=== PATIENT | female | born 2000 | race Hispanic/Latino ===

== ENCOUNTER 2023-09-13 13:48 | Inpatient (IN) | payer SELFPAY ==
--- OUTSIDE RECORDS SUMMARY | 2023-09-13 13:53 | XMS REPORT | Continuity of Care Document ---
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 COMPARISON: None. FINDINGS: Vertebral body height and disc spaces are maintained. No fractures or facet dislocation seen. Prevertebral soft tissues are normal. Lung apices are clear. IMPRESSION: 1. No cervical fracture seen. DLP: 1145.97 mGy*cm CT radiation dose optimization is achieved by the use of a CT protocol in accordance with ACR practice guidelines and adherence to therapist asst's recommendations which include automated exposure control, adjustment of the mA and/or kV according to patient size and/or use of iterative reconstruction technique. Name: MARISSA ODELL [facility] Phys: Neville Monge DO [address] : 2000 Age: 19 Sex: [place] [address] Loc: N.ERNT 2 Exam Date: 07/01/2020 [facility]: ADM IN PH: FAX: PAGE 1 Signed Report (CONTINUED) Patient Name: MARISSA ODELL Unit No: [id number] EXAMS: CPT: [id number] CT HEAD/BRAIN W/O CONT 07771 (Continued) at 2206 Reported and signed by: Edna Ochoa MD CC: Doc No Technologist: ILENE Bautista CTDI: 44.79 DLP: 628.17 Trscr Dt/Tm: 07/01/2020 (2206) by:[email or web address] Orig Print D/T: S: 07/01/2020 (2209) BATCH NO: N/A Name: MARISSA ODELL [facility] Phys: PELLE - Peleg,Leeor B DO [address] [place] : 2000 Age: 19 Sex: [place] [address] Loc: N[facility] 2 Exam Date: 07/01/2020 Status: ADM IN PH: FAX: PAGE 2 Signed Report- CT MAXIFAC W/O [id number] 21:16:00Patient Name: MARISSA ODELL Unit No: [id number] EXAMS: CPT: [id number] CT MAXIFAC W/O CONTRAST [address]11 CT MAXILLOFACIAL WITHOUT CONTRAST: CLINICAL HISTORY: Trauma TECHNIQUE: Axial CT imaging of the facial bones was performed without IV contrast. Sagittal and coronal reformatted images are submitted. FINDINGS: There is a fracture of the upper right maxilla with approximately 3 mm displacement, which runs between tooth #8 and #9. The globes and orbital floors are intact. There is no retrobulbar hemorrhage. The paranasal sinuses are clear. Soft tissue structures appear normal. IMPRESSION: Mild displaced fracture of the upper right anterior maxilla between tooth #8 and #9. DLP: 347.96 mGy-cm CT dose o ptimization is achieved for this examination by the use of a CT protocol in accordance with ACR practice standards and adherence to therapist asst's recommendations with automated exposure control. at 2115 Reported and signed by: Jesús centeno MD CC: Grady Fuentes MD Technologist: ILENE Bautista CTDI: 18.95 DLP: 347.96 Trscr Dt/Tm: 07/01/2020 (2115) by:[email or web address] Orig Print D/T: S: 07/01/2020 (2118) BATCH NO: N/A Name: MARISSA ODELL [facility] Phys: Neville Monge DO [address] : 2000 Age: 19 Sex: F [place] [address] Loc: SARA Exam Date: 07/01/2020 Status: REG ER PH: FAX: PAGE 1 Signed ReportSURGICAL [id number] 15:09:00 RUN DATE: 10/21/19 [facility] - LAB PAGE 1 RUN TIME: 1510 Specimen Inquiry RUN USER: INTERFACE --- ---------PATIENT: MARISSA ODELL LOC: [id number] U #: [id number] AGE/SX: 18/F ROOM: N60 RE10/09/19REG DR: Grady Fuentes MD : [birth year] BED: 1 DIS: 10/20/19 STATUS: DIS IN TLOC: SPEC #: [id number] RECD: 10/14/19-1111 STATUS: TESSY REAshleigh #: [id number] LATHA: 10/13/19-[address]: Grady Fuentes MD ENTERED: 10/14/19-1205 SP TYPE: SURG OTHR DR: ORDERED: PATHGM4, PATHGM5, PATH SPEC, H E STAIN/2 TISSUES: A.PLACENTA THIRD TRIMESTER - Placenta B. LEIOMYOMA MYOMECTOMY - Uterine fibroid CLINICAL HISTORY Diagnosis/Clinical Data: 26.5 weeks, premature and prolonged rupture of membranes, history of genital herpes and bipolar disorder, 10 cm uterine fibroid, history of marijuana use in the first trimester Operative Procedure: C- section FINAL DIAGNOSIS Placenta, section (200 gm): Umbilical cord: Threevessels identified; cord length 18.5 cm. Membranes: Acute chorioamnionitis. Cotyledons: Pattern consistent with gestational age. Uterine myoma, myomectomy: Leiomyoma with extensive infarctive necrosis.Electronically signed by: Aristides Coppola MD 10/21/2019 GROSS DESCRIPTION A. Received fresh, labeled"placenta", is a 200 g, 14.0 x 10.0 x 2.0 cm, [place], ovoid placenta. The membranes are xiong-pink to xiong-brown, semi-translucent, and insert marginally. The umbilical cord is xiong-white, measures 18.5 cm in length and 1.2 cm in diameter, is normally coiled, contains three vessels and inserts eccentrically. The surface is blue-webb, with a normal vascular distribution pattern. The maternal surface is red-brown, with complete cotyledons. The parenchyma is red-brown, with no masses or lesions. Resource Agent sections are submitted in cassettes A1 - A4. B. Received fresh, labeled "uterine fibroid", a 350 g, 14.0 x 11.0 x 6.0 cm, xiong-brown, partially degenerative, subserosal nodule. The cut surfaces are xiong-white to xiong-brown, whorled, and partially necrotic. Resource Agent sections are submitted in cassettes B1 - B4. TR 10/17/2019 12:44 PM CONTINUED ON NEXT PAGE RUN DATE: 10/21/19 [facility] - LAB PAGE 2 RUN TIME: 1510 Specimen Inquiry RUN USER: INTERFACE SPEC #: [id number] PATIENT: MARISSA ODELL #[id number] (Continued) MICROSCOPIC DESCRIPTION Sections of the umbilical cord show three vessels identified that are free of inflammation. Sections of the membranes show amnion and chorion with patchy infiltration by neutrophils, consistent with acute chorioamnionitis. Sections of the cotyledons how a pattern consistent with gestational age with increased syncytial knots and scattered foci of fibrin deposition. The villi show appropriate vascularity and no evidence of infarction or villitis is identified. No distinct evidence of malignancy is identified. Sections of the uterine myoma show portions of smooth muscle tissue with extensive hyalinizing necrosis, the latter consisting of sh adows of tapered, spindled cells without obvious nuclear enlargement. More viable areas of smooth muscle show spindled cells without prominent atypia nor prominent mitotic activity (up to 1 mitosis per10 high-power salazar), consistent with fragments of a leiomyoma with infarctive necrosis. No distinct evidence of malignancy is appreciated in this material. Signed SIGNATURE ON FILE Aristides Coppola MD 10/21/19 1509 END OF REPORT VANCOMYCIN [id number] 11:31:00 Test Item Value Reference Range Interpretation Comments VANCOMYCIN TROUGH 5.7 ug/ml 10.0-20.0 L Please ref er to (test code = VANCT) Medicati on Administration Record (MAR) forlast d ose date and time. [id number] 11:15:00 Test Item Value Reference Range Interpretation Comments CREATININE (test code = CREAT) 0.50 mg/dL 0.44-1.03 N [id number] 09:09:00 Test Item Value Reference Range Interpretation Comments GLUBED (test code = GLUBED) 85 MG/DL 70-105 N CBC W/AUTO [id number] 07:07:00 Test Item Value Reference Range Interpretation Comments WHITE BLOOD CELL (test 11.4 x10 3/uL 3.2-11.5 N code = WBC) CORRECTED WBC (test 11.4 x10 3/uL 3.2-11.5 N ------- code = CWBC) --- --| ~~ Correcte d WBC Result ~~ | | WBC has been corrected due t o NRBC | --- --- --- RED BLOOD CELL (test 2.61 x10(6)/m 3.70-5.10 L code = RBC) HEMOGLOBIN (test code 7.5 g/dL 12.0-15.0 L = HGB) HEMATOCRIT (test code 24.1 % 35.7-44.8 L = HCT) MEAN CELL VOLUME (test 92 fL 80-100 N code = MCV) MEAN CELL HGB (test 28.7 pg 26.2-33.8 N code = MCH) MEAN CELL HGB 31.1 g/dL 30.0-34.0 N CONCENTRATION (test code = MCHC) RED CELL DISTRIBUTION 14.4 % 11.3-14.5 N WIDTH (test code = RDW) PLATELET COUNT (test 436 x10 3/uL 130-408 H code = PLT) MEAN PLATELET VOLUME 9.6 fL 8.6-12.6 N (test code = MPV) WBC [id number] 07:07:00 Test Item Value Reference Range Interpretation Comments TOTAL CELLS COUNTED (test code = 100 #CELLS TCC) SEGMENTED NEUTROPHILS (test code 58 % 43-65 N = SEG) LYMPHOCYTE (test code = LYMPH) 32 % 20.5-45.5 N MONOCYTE (test code = MON) 3 % 5.5-11.7 L EOSINOPHIL (test code = EOS) 3 % 0.9-2.9 H METAMYELOCYTE (test code = META) 1 % 0-0 H MYELOCYTE (test code = MYELO) 3 % 0-0 H BAND ABSOLUTE (test code = 0.00 10 3/uL 0.00-0.70 N BAND#) NEUTROPHIL ABSOLUTE (test code = 6.61 10 3/uL 6.00-26.00 N SEG#) LYMPH ABSOLUTE (test code = 3.6 10 3/uL 2.00-17.00 N LYMPH#) ATYPICAL LYMPH ABSOLUTE (test 0.00 10 3/uL 0.00-0.00 N code = ALYMPH#) MONOCYTE ABSOLUTE (test code = 0.34 10 3/uL 0.40-3.10 L MON#) BASOPHIL ABSOLUTE (test code = 0.00 10 3/uL 0.00-0.20 N BASO#) EOSINOPHIL ABSOLUTE (test code = 0.34 10 3/uL 0.00-0.50 N EOS#) METAMYELOCYTE ABSOLUTE (test 0.11 10 3/uL 0.00-0.00 H code = META#) MYELOCYTE ABSOLUTE (test code = 0.34 10 3/uL 0.00-0.00 H MYELO#) PROMYELOCYTE ABSOLUTE (test code 0.00 10 3/uL 0.00-0.00 N = PROM#) BLASTS ABSOLUTE (test code = 0.00 10 3/uL 0.00-0.00 N BLAST#) OTHER CELLS ABSOLUTE (test code 0.00 10 3/uL 0.00-0.00 N = OCT#) RBC MORPHOLOGY COMMENT (test Normal NORMAL code = MOC) PLATELET MORPHOLOGY (test code = NORMAL NORMAL PLTMORPH) CBC W/AUTO [id number] 06:17:00 Test Item Value Reference Range Interpretation Comments WHITE BLOOD CELL (test code = 11.4 x10 3/uL 3.2-11.5 N WBC) RED BLOOD CELL (test code = 2.61 x10(6)/m 3.70-5.10 L RBC) HEMOGLOBIN (test code = HGB) 7.5 g/dL 12.0-15.0 L HEMATOCRIT (test code = HCT) 24.1 % 35.7-44.8 L MEAN CELL VOLUME (test code = 92 fL 80-100 N MCV) MEAN CELL HGB (test code = MCH) 28.7 pg 26.2-33.8 N MEAN CELL HGB CONCENTRATION 31.1 g/dL 30.0-34.0 N (test code = MCHC) RED CELL DISTRIBUTION WIDTH 14.4 % 11.3-14.5 N (test code = RDW) PLATELET COUNT (test code = 436 x10 3/uL 130-408 H PLT) MEAN PLATELET VOLUME (test code 9.6 fL 8.6-12.6 N = MPV) WBC [id number] 06:17:00 Test Item Value Reference Range Interpretation Comments TOTAL CELLS COUNTED (test code = TCC) #CELLS RBC MORPHOLOGY COMMENT (test code = NORMAL MOC) PLATELET MORPHOLOGY (test code = NORMAL PLTMORPH) CBC W/AUTO [id number] 06:17:00 Test Item Value Reference Range Interpretation Comments WHITE BLOOD CELL (test code = 11.4 x10 3/uL 3.2-11.5 N WBC) RED BLOOD CELL (test code = 2.61 x10(6)/m 3.70-5.10 L RBC) HEMOGLOBIN (test code = HGB) 7.5 g/dL 12.0-15.0 L HEMATOCRIT (test code = HCT) 24.1 % 35.7-44.8 L MEAN CELL VOLUME (test code = 92 fL 80-100 N MCV) MEAN CELL HGB (test code = MCH) 28.7 pg 26.2-33.8 N MEAN CELL HGB CONCENTRATION 31.1 g/dL 30.0-34.0 N (test code = MCHC) RED CELL DISTRIBUTION WIDTH 14.4 % 11.3-14.5 N (test code = RDW) PLATELET COUNT (test code = 436 x10 3/uL 130-408 H PLT) MEAN PLATELET VOLUME (test code 9.6 fL 8.6-12.6 N = MPV) WBC [id number] 06:17:00 Test Item Value Reference Range Interpretation Comments TOTAL CELLS COUNTED (test code = TCC) #CELLS RBC MORPHOLOGY COMMENT (test code = NORMAL MOC) PLATELET MORPHOLOGY (test code = NORMAL PLTMORPH) BASIC METABOLIC [id number] 06:12:00 Test Item Value Reference Range Interpretation Comments SODIUM (test code 136 mmol/L 135-145 N = NA) POTASSIUM (test 3.7 mmol/L 3.6-5.0 N code = K) CHLORIDE (test 102 mmol/L 101-111 N code = CL) CARBON DIOXIDE 28 mmol/L 21-31 N (test code = CO2) GLUCOSE (test code 76 mg/dl 70-100 N = GLU) BLOOD UREA < 5 mg/dl 6-20 L NITROGEN (test code = BUN) GLOMERULAR >=60 max >60 The estimated FILTRATION RATE estimate glomerular (test code = GFR) filtration rate is computed usingpatient ra ce, age (>18), sex, and serum creatinin e. If anyof the neede d data elements a re missing the Laboratory cesia ot compute an estimation of t he glomerular filtration rate . CREATININE (test 0.50 mg/dL 0.44-1.03 N code = CREAT) CALCIUM (test code 8.4 mg/dL 8.5-10.5 L = CA) CBC W/AUTO [id number] 22:56:00 Test Item Value Reference Range Interpretation Comments WHITE BLOOD CELL (test 12.2 x10 3/uL 3.2-11.5 H code = WBC) CORRECTED WBC (test 12.2 x10 3/uL 3.2-11.5 H ------- code = CWBC) --- --| ~~ Correcte d WBC Result ~~ | | WBC has been corrected due t o NRBC | --- --- --- RED BLOOD CELL (test 2.54 x10(6)/m 3.70-5.10 L code = RBC) HEMOGLOBIN (test code 7.5 g/dL 12.0-15.0 L = HGB) HEMATOCRIT (test code 23.1 % 35.7-44.8 L = HCT) MEAN CELL VOLUME (test 91 fL 80-100 N code = MCV) MEAN CELL HGB (test 29.5 pg 26.2-33.8 N code = MCH) MEAN CELL HGB 32.5 g/dL 30.0-34.0 N CONCENTRATION (test code = MCHC) RED CELL DISTRIBUTION 14.3 % 11.3-14.5 N WIDTH (test code = RDW) PLATELET COUNT (test 406 x10 3/uL 130-408 N code = PLT) MEAN PLATELET VOLUME 9.3 fL 8.6-12.6 N (test code = MPV) WBC [id number] 22:56:00 Test Item Value Reference Range Interpretation Comments TOTAL CELLS COUNTED (test code = 100 #CELLS TCC) SEGMENTED NEUTROPHILS (test code 71 % 43-65 H = SEG) LYMPHOCYTE (test code = LYMPH) 23 % 20.5-45.5 N MONOCYTE (test code = MON) 2 % 5.5-11.7 L EOSINOPHIL (test code = EOS) 1 % 0.9-2.9 N METAMYELOCYTE (test code = META) 2 % 0-0 H MYELOCYTE (test code = MYELO) 1 % 0-0 H BAND ABSOLUTE (test code = 0.00 10 3/uL 0.00-0.70 N BAND#) NEUTROPHIL ABSOLUTE (test code = 8.66 10 3/uL 6.00-26.00 N SEG#) LYMPH ABSOLUTE (test code = 2.8 10 3/uL 2.00-17.00 N LYMPH#) ATYPICAL LYMPH ABSOLUTE (test 0.00 10 3/uL 0.00-0.00 N code = ALYMPH#) MONOCYTE ABSOLUTE (test code = 0.24 10 3/uL 0.40-3.10 L MON#) BASOPHIL ABSOLUTE (test code = 0.00 10 3/uL 0.00-0.20 N BASO#) EOSINOPHIL ABSOLUTE (test code = 0.12 10 3/uL 0.00-0.50 N EOS#) METAMYELOCYTE ABSOLUTE (test 0.24 10 3/uL 0.00-0.00 H code = META#) MYELOCYTE ABSOLUTE (test code = 0.12 10 3/uL 0.00-0.00 H MYELO#) PROMYELOCYTE ABSOLUTE (test code 0.00 10 3/uL 0.00-0.00 N = PROM#) BLASTS ABSOLUTE (test code = 0.00 10 3/uL 0.00-0.00 N BLAST#) OTHER CELLS ABSOLUTE (test code 0.00 10 3/uL 0.00-0.00 N = OCT#) RBC MORPHOLOGY COMMENT (test Normal NORMAL code = MOC) PLATELET MORPHOLOGY (test code = NORMAL NORMAL PLTMORPH) CBC W/AUTO [id number] 22:41:00 Test Item Value Reference Range Interpretation Comments WHITE BLOOD CELL (test code = 12.2 x10 3/uL 3.2-11.5 H WBC) RED BLOOD CELL (test code = 2.54 x10(6)/m 3.70-5.10 L RBC) HEMOGLOBIN (test code = HGB) 7.5 g/dL 12.0-15.0 L HEMATOCRIT (test code = HCT) 23.1 % 35.7-44.8 L MEAN CELL VOLUME (test code = 91 fL 80-100 N MCV) MEAN CELL HGB (test code = MCH) 29.5 pg 26.2-33.8 N MEAN CELL HGB CONCENTRATION 32.5 g/dL 30.0-34.0 N (test code = MCHC) RED CELL DISTRIBUTION WIDTH 14.3 % 11.3-14.5 N (test code = RDW) PLATELET COUNT (test code = 406 x10 3/uL 130-408 N PLT) MEAN PLATELET VOLUME (test code 9.3 fL 8.6-12.6 N = MPV) WBC [id number] 22:41:00 Test Item Value Reference Range Interpretation Comments TOTAL CELLS COUNTED (test code = TCC) #CELLS RBC MORPHOLOGY COMMENT (test code = NORMAL MOC) PLATELET MORPHOLOGY (test code = NORMAL PLTMORPH) CBC W/AUTO [id number] 22:40:00 Test Item Value Reference Range Interpretation Comments WHITE BLOOD CELL (test code = 12.2 x10 3/uL 3.2-11.5 H WBC) RED BLOOD CELL (test code = 2.54 x10(6)/m 3.70-5.10 L RBC) HEMOGLOBIN (test code = HGB) 7.5 g/dL 12.0-15.0 L HEMATOCRIT (test code = HCT) 23.1 % 35.7-44.8 L MEAN CELL VOLUME (test code = 91 fL 80-100 N MCV) MEAN CELL HGB (test code = MCH) 29.5 pg 26.2-33.8 N MEAN CELL HGB CONCENTRATION 32.5 g/dL 30.0-34.0 N (test code = MCHC) RED CELL DISTRIBUTION WIDTH 14.3 % 11.3-14.5 N (test code = RDW) PLATELET COUNT (test code = 406 x10 3/uL 130-408 N PLT) MEAN PLATELET VOLUME (test code 9.3 fL 8.6-12.6 N = MPV) WBC [id number] 22:40:00 Test Item Value Reference Range Interpretation Comments TOTAL CELLS COUNTED (test code = TCC) #CELLS RBC MORPHOLOGY COMMENT (test code = NORMAL MOC) PLATELET MORPHOLOGY (test code = NORMAL PLTMORPH) [id number] 20:49:00 Test Item Value Reference Range Interpretation Comments GLUBED (test code = GLUBED) 87 MG/DL 70-105 N CBC W/AUTO [id number] 18:45:00 Test Item Value Reference Range Interpretation Comments WHITE BLOOD CELL (test code = 12.1 x10 3/uL 3.2-11.5 H WBC) RED BLOOD CELL (test code = 2.64 x10(6)/m 3.70-5.10 L RBC) HEMOGLOBIN (test code = HGB) 7.8 g/dL 12.0-15.0 L HEMATOCRIT (test code = HCT) 24.1 % 35.7-44.8 L MEAN CELL VOLUME (test code = 91 fL 80-100 N MCV) MEAN CELL HGB (test code = MCH) 29.5 pg 26.2-33.8 N MEAN CELL HGB CONCENTRATION 32.4 g/dL 30.0-34.0 N (test code = MCHC) RED CELL DISTRIBUTION WIDTH 14.3 % 11.3-14.5 N (test code = RDW) PLATELET COUNT (test code = 424 x10 3/uL 130-408 H PLT) MEAN PLATELET VOLUME (test code 9.4 fL 8.6-12.6 N = MPV) NEUTROPHIL % (test code = NT%) 73.8 % 40.0-70.0 H IMMATURE GRANULOCYTE % (test 2.6 % 0.0-2.0 H code = IG%) LYMPHOCYTE % (test code = LY%) 15.6 % 20-40 L MONOCYTE % (test code = MO%) 6.5 % 1-10 N EOSINOPHIL % (test code = EO%) 1.2 % 0.0-5.0 N BASOPHIL % (test code = BA%) 0.3 % 0.0-1.0 N NUCLEATED RBC % (test code = 0.0 % 0.0-0.9 N NRBC%) NEUTROPHIL # (test code = NT#) 8.9 x10 3/uL 1.6-7.2 H LYMPHOCYTE # (test code = LY#) 1.88 x10 3/uL 1.1-2.7 N MONOCYTE # (test code = MO#) 0.8 x10 3/uL 0.3-0.8 N EOSINOPHIL # (test code = EO#) 0.2 x10 3/uL 0.0-0.5 N BASOPHIL # (test code = BA#) 0.0 x10 3/uL 0.0-0.1 N - CT ABD PELVIS [id number] 17:57:00Patient Name: MARISSA ODELL Unit No: [id number] EXAMS: CPT: [id number] CT ABD PELVIS W/CONT 14484HA ABDOMEN AND PELVIS Multiplanar imaging of the abdomen and pelvis was performed from the lung bases to the symphysis pubis with 100 mL Isovue-300. HISTORY PROVIDED: Sepsis, abdominal pain, recent surgery COMPARISON: Patient had CT abdomen 15 October 2019 FINDINGS: Lung bases are clear. In the lower abdomen anterior to the uterus and superior to the bladder there is a focal fluid collection measuring about 12 cm x 4 cm in size. It contains a few bubbles of air. This was not present on the previous study 2 days ago and may represent hemorrhage. The post gravid uterus shows fluid and air in the endometrial cavity. The liver is normal in size and configuration. There is no liver mass or intrahepatic bile duct dilatation. The spleen is normal in size and configuration. The pancreas reveals no cyst, mass, or calcification. Bilaterally the kidneys excrete contrast promptly with mild pelviectasis.Findings discussed with the charge nurse on the floor and she will contact Dr. Fuentes. CONCLUSION: Increasing fluid collection anterior to the uterus at the operative site presumably hemorrhage. Radiation dose optimization was achieved by protocols in accordance with standard of practice, department policies and therapist asst's recommendations with one or more of the following: Automated exposure control, adjustment of KVP and MAS by age and weight, iterative reconstruction technique. DLP: 368 mGy/cm at 1757 Reported and signed by: Sean Garay MD Name: MARISSA ODELL [facility] Phys: MONICA.Ayesha - Amelia Prince [address] [place] : 2000 Age: 18 Sex: F [place] [address] Loc: N.6025 1 Exam Date: 10/17/2019 Status: ADM IN PH: FAX: PAGE 1 Signed Report (CONTINUED) Patient Name: MARISSA ODELL Unit No: [id number] EXAMS: CPT: [id number] CT ABD PELVIS W/CONT 11348 (Continued) CC: Kely Villa MD; Grady Fuentes MD Technologist: Brissa Appiah CTDI: 6.96 DLP: 368.15 Trscr Dt/Tm: 10/17/2019 (1757) by:[email or web address] Orig Print D/T: S: 10/17/2019 (1800) BATCH NO: N/A Name: MARISSA ODELL [facility] Phys: MONICA.Ayesha - Amelia Prnice [address] [place] : 2000 Age: 18 Sex: F [place] [address] Loc: N.6025 1 Exam Date: 10/17/2019 Status: ADM IN PH: FAX: PAGE 2 Signed ReportBASIC METABOLIC [id number] 05:15:00 Test Item Value Reference Range Interpretation Comments SODIUM (test code 138 mmol/L 135-145 N = NA) POTASSIUM (test 3.6 mmol/L 3.6-5.0 N code = K) CHLORIDE (test 104 mmol/L 101-111 N code = CL) CARBON DIOXIDE 26 mmol/L 21-31 N (test code = CO2) GLUCOSE (test code 87 mg/dl 70-100 N = GLU) BLOOD UREA 5 mg/dl 6-20 L NITROGEN (test code = BUN) GLOMERULAR >=60 max >60 The estimated FILTRATION RATE estimate glomerular (test code = GFR) filtration rate is computed usingpatient ra ce, age (>18), sex, and serum creatinin e. If anyof the neede d data elements a re missing the Laboratory cesia ot compute an estimation of t he glomerular filtration rate . CREATININE (test 0.51 mg/dL 0.44-1.03 N code = CREAT) CALCIUM (test code 8.2 mg/dL 8.5-10.5 L = CA) CBC W/AUTO [id number] 05:09:00 Test Item Value Reference Range Interpretation Comments WHITE BLOOD CELL (test code = 11.9 x10 3/uL 3.2-11.5 H WBC) RED BLOOD CELL (test code = 2.47 x10(6)/m 3.70-5.10 L RBC) HEMOGLOBIN (test code = HGB) 7.2 g/dL 12.0-15.0 L HEMATOCRIT (test code = HCT) 22.5 % 35.7-44.8 L MEAN CELL VOLUME (test code = 91 fL 80-100 N MCV) MEAN CELL HGB (test code = MCH) 29.1 pg 26.2-33.8 N MEAN CELL HGB CONCENTRATION 32.0 g/dL 30.0-34.0 N (test code = MCHC) RED CELL DISTRIBUTION WIDTH 14.0 % 11.3-14.5 N (test code = RDW) PLATELET COUNT (test code = 350 x10 3/uL 130-408 N PLT) MEAN PLATELET VOLUME (test code 9.6 fL 8.6-12.6 N = MPV) NEUTROPHIL % (test code = NT%) 78.5 % 40.0-70.0 H IMMATURE GRANULOCYTE % (test 2.1 % 0.0-2.0 H code = IG%) LYMPHOCYTE % (test code = LY%) 13.6 % 20-40 L MONOCYTE % (test code = MO%) 4.1 % 1-10 N EOSINOPHIL % (test code = EO%) 1.5 % 0.0-5.0 N BASOPHIL % (test code = BA%) 0.2 % 0.0-1.0 N NUCLEATED RBC % (test code = 0.0 % 0.0-0.9 N NRBC%) NEUTROPHIL # (test code = NT#) 9.3 x10 3/uL 1.6-7.2 H LYMPHOCYTE # (test code = LY#) 1.62 x10 3/uL 1.1-2.7 N MONOCYTE # (test code = MO#) 0.5 x10 3/uL 0.3-0.8 N EOSINOPHIL # (test code = EO#) 0.2 x10 3/uL 0.0-0.5 N BASOPHIL # (test code = BA#) 0.0 x10 3/uL 0.0-0.1 N CBC W/AUTO [id number] 11:10:00 Test Item Value Reference Range Interpretation Comments WHITE BLOOD CELL (test 13.2 x10 3/uL 3.2-11.5 H code = WBC) CORRECTED WBC (test 13.2 x10 3/uL 3.2-11.5 H ------- code = CWBC) --- --| ~~ Correcte d WBC Result ~~ | | WBC has been corrected due t o NRBC | --- --- --- RED BLOOD CELL (test 2.70 x10(6)/m 3.70-5.10 L code = RBC) HEMOGLOBIN (test code 8.0 g/dL 12.0-15.0 L = HGB) HEMATOCRIT (test code 24.9 % 35.7-44.8 L = HCT) MEAN CELL VOLUME (test 92 fL 80-100 N code = MCV) MEAN CELL HGB (test 29.6 pg 26.2-33.8 N code = MCH) MEAN CELL HGB 32.1 g/dL 30.0-34.0 N CONCENTRATION (test code = MCHC) RED CELL DISTRIBUTION 14.4 % 11.3-14.5 N WIDTH (test code = RDW) PLATELET COUNT (test 297 x10 3/uL 130-408 N code = PLT) MEAN PLATELET VOLUME 9.8 fL 8.6-12.6 N (test code = MPV) WBC [id number] 11:10:00 Test Item Value Reference Range Interpretation Comments TOTAL CELLS COUNTED (test code = 100 #CELLS TCC) SEGMENTED NEUTROPHILS (test code 70 % 43-65 H = SEG) BAND NEUTROPHIL (test code = 20 % 0-1 H BAND) LYMPHOCYTE (test code = LYMPH) 7 % 20.5-45.5 L MONOCYTE (test code = MON) 1 % 5.5-11.7 L EOSINOPHIL (test code = EOS) 1 % 0.9-2.9 N METAMYELOCYTE (test code = META) 1 % 0-0 H BAND ABSOLUTE (test code = 2.64 10 3/uL 0.00-0.70 H BAND#) NEUTROPHIL ABSOLUTE (test code = 9.24 10 3/uL 6.00-26.00 N SEG#) LYMPH ABSOLUTE (test code = 0.9 10 3/uL 2.00-17.00 L LYMPH#) ATYPICAL LYMPH ABSOLUTE (test 0.00 10 3/uL 0.00-0.00 N code = ALYMPH#) MONOCYTE ABSOLUTE (test code = 0.13 10 3/uL 0.40-3.10 L MON#) BASOPHIL ABSOLUTE (test code = 0.00 10 3/uL 0.00-0.20 N BASO#) EOSINOPHIL ABSOLUTE (test code = 0.13 10 3/uL 0.00-0.50 N EOS#) METAMYELOCYTE ABSOLUTE (test 0.13 10 3/uL 0.00-0.00 H code = META#) MYELOCYTE ABSOLUTE (test code = 0.00 10 3/uL 0.00-0.00 N MYELO#) PROMYELOCYTE ABSOLUTE (test code 0.00 10 3/uL 0.00-0.00 N = PROM#) BLASTS ABSOLUTE (test code = 0.00 10 3/uL 0.00-0.00 N BLAST#) OTHER CELLS ABSOLUTE (test code 0.00 10 3/uL 0.00-0.00 N = OCT#) RBC MORPHOLOGY COMMENT (test Normal NORMAL code = MOC) PLATELET MORPHOLOGY (test code = NORMAL NORMAL PLTMORPH) CBC W/AUTO [id number] 09:13:00 Test Item Value Reference Range Interpretation Comments WHITE BLOOD CELL (test code = 13.2 x10 3/uL 3.2-11.5 H WBC) RED BLOOD CELL (test code = 2.70 x10(6)/m 3.70-5.10 L RBC) HEMOGLOBIN (test code = HGB) 8.0 g/dL 12.0-15.0 L HEMATOCRIT (test code = HCT) 24.9 % 35.7-44.8 L MEAN CELL VOLUME (test code = 92 fL 80-100 N MCV) MEAN CELL HGB (test code = MCH) 29.6 pg 26.2-33.8 N MEAN CELL HGB CONCENTRATION 32.1 g/dL 30.0-34.0 N (test code = MCHC) RED CELL DISTRIBUTION WIDTH 14.4 % 11.3-14.5 N (test code = RDW) PLATELET COUNT (test code = 297 x10 3/uL 130-408 N PLT) MEAN PLATELET VOLUME (test code 9.8 fL 8.6-12.6 N = MPV) WBC [id number] 09:13:00 Test Item Value Reference Range Interpretation Comments TOTAL CELLS COUNTED (test code = TCC) #CELLS RBC MORPHOLOGY COMMENT (test code = NORMAL MOC) PLATELET MORPHOLOGY (test code = NORMAL PLTMORPH) CBC W/AUTO [id number] 09:12:00 Test Item Value Reference Range Interpretation Comments WHITE BLOOD CELL (test code = 13.2 x10 3/uL 3.2-11.5 H WBC) RED BLOOD CELL (test code = 2.70 x10(6)/m 3.70-5.10 L RBC) HEMOGLOBIN (test code = HGB) 8.0 g/dL 12.0-15.0 L HEMATOCRIT (test code = HCT) 24.9 % 35.7-44.8 L MEAN CELL VOLUME (test code = 92 fL 80-100 N MCV) MEAN CELL HGB (test code = MCH) 29.6 pg 26.2-33.8 N MEAN CELL HGB CONCENTRATION 32.1 g/dL 30.0-34.0 N (test code = MCHC) RED CELL DISTRIBUTION WIDTH 14.4 % 11.3-14.5 N (test code = RDW) PLATELET COUNT (test code = 297 x10 3/uL 130-408 N PLT) MEAN PLATELET VOLUME (test code 9.8 fL 8.6-12.6 N = MPV) WBC [id number] 09:12:00 Test Item Value Reference Range Interpretation Comments TOTAL CELLS COUNTED (test code = TCC) #CELLS RBC MORPHOLOGY COMMENT (test code = NORMAL MOC) PLATELET MORPHOLOGY (test code = NORMAL PLTMORPH) LACTIC [id number] 16:07:00 Test Item Value Reference Range Interpretation Comments LACTIC ACID (test code = LACT) 2.0 mmol/L 0.5-2.0 N BASIC METABOLIC [id number] 15:49:00 Test Item Value Reference Range Interpretation Comments SODIUM (test code 132 mmol/L 135-145 L = NA) POTASSIUM (test 3.1 mmol/L 3.6-5.0 L code = K) CHLORIDE (test 100 mmol/L 101-111 L code = CL) CARBON DIOXIDE 24 mmol/L 21-31 N (test code = CO2) GLUCOSE (test code 103 mg/dl 70-100 H = GLU) BLOOD UREA 5 mg/dl 6-20 L NITROGEN (test code = BUN) GLOMERULAR >=60 max >60 The estimated FILTRATION RATE estimate glomerular (test code = GFR) filtration rate is computed usingpatient ra ce, age (>18), sex, and serum creatinin e. If anyof the neede d data elements a re missing the Laboratory cesia ot compute an estimation of t he glomerular filtration rate . CREATININE (test 0.48 mg/dL 0.44-1.03 N code = CREAT) CALCIUM (test code 8.4 mg/dL 8.5-10.5 L = CA) - CT ABD PELVIS W/O [id number] 14:53:00Patient Name: MARISSA ODELL Unit No: [id number] EXAMS: CPT: [id number] CT ABD PELVIS W/O CONT 73339 CT ABDOMEN AND PELVIS WITHOUT CONTRAST: HISTORY: Fever and GNR bacteremia. COMPARISON: None TECHNIQUE: Axial CT imaging of the abdomen and pelvis without IV contrast. Sensitivity of the exam is limited without contrast. GI contrast administered Total DPL: 374.88mGy*cm One or more of the following dose reduction techniques were used: Automated exposure control, adjustment of the mA and or Kv according to patient size, and / or utilization of iterative reconstruction technique. FINDINGS: Subcutaneous air at the suprapubic area. Dependent atelectasis. Below the hemidiaphragms: The unenhanced liver, pancreas, spleen and adrenals are unremarkable. The gallbladder is unremarkable. Unremarkable left kidney. Some right hydronephrosis and hydroureter. A distended urinary bladder. No bladder calculi. There are some peritoneal air in particular around the lower pole of the abdomen. Some fluid stranding and air at the anterior uterus, suggesting recent postsurgical changes. Large fecal material throughout the colon. No bowel obstruction. No discrete fluid collection. No suspicious osseous lesion. IMPRESSION: Suprapubic soft tissue air and free peritoneal air as well as stranding at the anterior uterus compatible with recent postsurgical change. Mild right hydronephrosis and hydroureter without calculiidentified. Probably secondary to her / uterus. If continued clinical concern, rec ommend a CT abdomen pelvis with IV contrast. Name: MARISSA [facility] Phys: Jhoana Rooney MD [facility] : 2000 Age: 18 Sex: F [place], [place] [address] Loc: N.0250 1 Exam Date: 10/15/2019 Status: ADM IN PH: FAX: PAGE 1 Signed Report (CONTINUED) Zackary westbrook Name: MARISSA ODELL Unit No: [id number] EXAMS: CPT: [id number] CT ABD PELVIS W/O CONT 00825 (Continued) at 1453 Reported and signed by:Sanchez Chambers MD CC: Jhoana Nuñez; Grady Fuentes MD Technologist: Black Dc CTDI: 7.29 DLP: 374.88 Trscr Dt/Tm: 10/15/2019 (1453) by:[email or web address] Orig Print D/T: S: 10/15/2019 (1456) BATCH NO: N/A Name: MARISSA ODELL [facility] Phys: Jhoana Rooney MD [address] [facility] : 2000 Age: 18 Sex: F [place] [address] Loc: N.0250 1 Exam Date: 10/15/2019 Status: ADM IN PH: FAX: PAGE 2 Signed ReportURINALYSIS [id number] 08:57:00 Test Item Value Reference Range Interpretation Comments UA COLOR (test code = COLU) Red YELLOW A UA APPEARANCE (test code = APPU) Turbid CLEAR UA GLUCOSE DIPSTICK (test code = NEGATIVE NEGATIVE DGLUU) UA BILIRUBIN DIPSTICK (test code = NEGATIVE NEGATIVE BILU) UA KETONE DIPSTICK (test code = NEGATIVE NEGATIVE KETU) UA SPECIFIC GRAVITY (test code = 1.013 1.001-1.030 SGU) UA BLOOD DIPSTICK (test code = ARTIS) 3+ NEGATIVE UA PH DIPSTICK (test code = GISELLE) 6.0 5.0-9.0 UA PROTEIN DIPSTICK (test code = 3+ NEGATIVE A PROU) UA UROBILINOGEN DIPSTICK (test code NEGATIVE <=1.0 = URO) UA NITRITE DIPSTICK (test code = NEGATIVE NEGATIVE EDUARDO) UA ASCORBIC ACID DIPSTICK (test NEGATIVE code = AAU) UA LEUKOCYTE ESTERASE DIPSTICK 3+ NEGATIVE A (test code = LEUU) UA WBC (test code = WBCU) TNTC /HPF 0-5 A UA RBC (test code = RBCU) TNTC /HPF 0-5 A UA EPITHELIAL CELLS (test code = MANY /LPF NONE-FEW EPIU) UA BACTERIA (test code = BACU) None /HPF NONE SEEN UA MUCUS (test code = MUCU) 1+ /LPF NONE SEEN UA AMORPHOUS SEDIMENT (test code = RARE /HPF NONE SEEN AMORU) - XR CHEST 2 [id number] 08:18:00Patient Name: MARISSA ODELL Unit No: [id number] EXAMS: CPT: [id number] XR CHEST 2 V 27903 CHEST 2 views HISTORY PROVIDED: Abdominal pain back pain vaginal bleeding, COMPARISON: None FINDINGS: The lungs are clear. There is no infiltrate or atelectasis. The heart size is normal. There is novascular congestion. There is no pleural effusion. CONCLUSION: Normal exam at 0818 Reported and signed by: Sean Garay MD CC: Regulo Mcnamara; Grady Fuentes MD Technologist: Alyssa Cantrell Time: DAP (Gy m2): Air Kerma (mGy): Trscr Dt/Tm: 10/15/2019 (817) by:Dinh Orig Print D/T: S: 10/15/2019 (08) BATCH NO: N/A Name: MARISSA ODELL [facility] Phys: ROSJO. Regulo Gordon MD [address] [facility] : 2000 Age: 18 Sex: F [place] [address] Loc: N.0250 1 Exam Date: 10/15/2019 Status: ADM IN PH: FAX: PAGE 1 Signed ReportCBC W/AUTO [id number] 11:22:00 Test Item Value Reference Range Interpretation Comments WHITE BLOOD CELL (test code = 25.4 x10 3/uL 3.2-11.5 H WBC) RED BLOOD CELL (test code = 3.68 x10(6)/m 3.70-5.10 L RBC) HEMOGLOBIN (test code = HGB) 11.0 g/dL 12.0-15.0 L HEMATOCRIT (test code = HCT) 33.7 % 35.7-44.8 L MEAN CELL VOLUME (test code = 92 fL 80-100 N MCV) MEAN CELL HGB (test code = MCH) 29.9 pg 26.2-33.8 N MEAN CELL HGB CONCENTRATION 32.6 g/dL 30.0-34.0 N (test code = MCHC) RED CELL DISTRIBUTION WIDTH 14.1 % 11.3-14.5 N (test code = RDW) PLATELET COUNT (test code = 418 x10 3/uL 130-408 H PLT) MEAN PLATELET VOLUME (test code 9.3 fL 8.6-12.6 N = MPV) NEUTROPHIL % (test code = NT%) 88.0 % 40.0-70.0 H IMMATURE GRANULOCYTE % (test 1.2 % 0.0-2.0 N code = IG%) LYMPHOCYTE % (test code = LY%) 6.4 % 20-40 L MONOCYTE % (test code = MO%) 3.9 % 1-10 N EOSINOPHIL % (test code = EO%) 0.2 % 0.0-5.0 N BASOPHIL % (test code = BA%) 0.3 % 0.0-1.0 N NUCLEATED RBC % (test code = 0.0 % 0.0-0.9 N NRBC%) NEUTROPHIL # (test code = NT#) 22.4 x10 3/uL 1.6-7.2 H LYMPHOCYTE # (test code = LY#) 1.63 x10 3/uL 1.1-2.7 N MONOCYTE # (test code = MO#) 1.0 x10 3/uL 0.3-0.8 H EOSINOPHIL # (test code = EO#) 0.1 x10 3/uL 0.0-0.5 N BASOPHIL # (test code = BA#) 0.1 x10 3/uL 0.0-0.1 N AMNISURE (ROM) [id number] 10:01:00 Test Item Value Reference Range Interpretation Comments AMNISURE (ROM) TEST (test code = POSITIVE NEGATIVE AMNI) CBC W/AUTO [id number] 06:17:00 Test Item Value Reference Range Interpretation Comments WHITE BLOOD CELL (test code = 18.5 x10 3/uL 3.2-11.5 H WBC) RED BLOOD CELL (test code = 3.51 x10(6)/m 3.70-5.10 L RBC) HEMOGLOBIN (test code = HGB) 10.4 g/dL 12.0-15.0 L HEMATOCRIT (test code = HCT) 32.3 % 35.7-44.8 L MEAN CELL VOLUME (test code = 92 fL 80-100 N MCV) MEAN CELL HGB (test code = MCH) 29.6 pg 26.2-33.8 N MEAN CELL HGB CONCENTRATION 32.2 g/dL 30.0-34.0 N (test code = MCHC) RED CELL DISTRIBUTION WIDTH 13.9 % 11.3-14.5 N (test code = RDW) PLATELET COUNT (test code = 407 x10 3/uL 130-408 N PLT) MEAN PLATELET VOLUME (test code 9.7 fL 8.6-12.6 N = MPV) NEUTROPHIL % (test code = NT%) 84.5 % 40.0-70.0 H IMMATURE GRANULOCYTE % (test 1.9 % 0.0-2.0 N code = IG%) LYMPHOCYTE % (test code = LY%) 8.9 % 20-40 L MONOCYTE % (test code = MO%) 3.8 % 1-10 N EOSINOPHIL % (test code = EO%) 0.5 % 0.0-5.0 N BASOPHIL % (test code = BA%) 0.4 % 0.0-1.0 N NUCLEATED RBC % (test code = 0.0 % 0.0-0.9 N NRBC%) NEUTROPHIL # (test code = NT#) 15.7 x10 3/uL 1.6-7.2 H LYMPHOCYTE # (test code = LY#) 1.64 x10 3/uL 1.1-2.7 N MONOCYTE # (test code = MO#) 0.7 x10 3/uL 0.3-0.8 N EOSINOPHIL # (test code = EO#) 0.1 x10 3/uL 0.0-0.5 N BASOPHIL # (test code = BA#) 0.1 x10 3/uL 0.0-0.1 N CBC W/AUTO [id number] 10:30:00 Test Item Value Reference Range Interpretation Comments WHITE BLOOD CELL (test 13.5 x10 3/uL 3.2-11.5 H code = WBC) CORRECTED WBC (test 13.5 x10 3/uL 3.2-11.5 H ------- code = CWBC) --- --| ~~ Correcte d WBC Result ~~ | | WBC has been corrected due t o NRBC | --- --- --- RED BLOOD CELL (test 3.59 x10(6)/m 3.70-5.10 L code = RBC) HEMOGLOBIN (test code 10.8 g/dL 12.0-15.0 L = HGB) HEMATOCRIT (test code 32.5 % 35.7-44.8 L = HCT) MEAN CELL VOLUME (test 91 fL 80-100 N code = MCV) MEAN CELL HGB (test 30.1 pg 26.2-33.8 N code = MCH) MEAN CELL HGB 33.2 g/dL 30.0-34.0 N CONCENTRATION (test code = MCHC) RED CELL DISTRIBUTION 13.9 % 11.3-14.5 N WIDTH (test code = RDW) PLATELET COUNT (test 383 x10 3/uL 130-408 N code = PLT) MEAN PLATELET VOLUME 9.9 fL 8.6-12.6 N (test code = MPV) WBC [id number] 10:30:00 Test Item Value Reference Range Interpretation Comments TOTAL CELLS COUNTED (test code = 100 #CELLS TCC) SEGMENTED NEUTROPHILS (test code 53 % 43-65 N = SEG) BAND NEUTROPHIL (test code = 5 % 0-1 H BAND) LYMPHOCYTE (test code = LYMPH) 27 % 20.5-45.5 N MONOCYTE (test code = MON) 10 % 5.5-11.7 N EOSINOPHIL (test code = EOS) 2 % 0.9-2.9 N MYELOCYTE (test code = MYELO) 3 % 0-0 H BAND ABSOLUTE (test code = 0.68 10 3/uL 0.00-0.70 N BAND#) NEUTROPHIL ABSOLUTE (test code = 7.16 10 3/uL 6.00-26.00 N SEG#) LYMPH ABSOLUTE (test code = 3.6 10 3/uL 2.00-17.00 N LYMPH#) ATYPICAL LYMPH ABSOLUTE (test 0.00 10 3/uL 0.00-0.00 N code = ALYMPH#) MONOCYTE ABSOLUTE (test code = 1.35 10 3/uL 0.40-3.10 N MON#) BASOPHIL ABSOLUTE (test code = 0.00 10 3/uL 0.00-0.20 N BASO#) EOSINOPHIL ABSOLUTE (test code = 0.27 10 3/uL 0.00-0.50 N EOS#) METAMYELOCYTE ABSOLUTE (test 0.00 10 3/uL 0.00-0.00 N code = META#) MYELOCYTE ABSOLUTE (test code = 0.41 10 3/uL 0.00-0.00 H MYELO#) PROMYELOCYTE ABSOLUTE (test code 0.00 10 3/uL 0.00-0.00 N = PROM#) BLASTS ABSOLUTE (test code = 0.00 10 3/uL 0.00-0.00 N BLAST#) OTHER CELLS ABSOLUTE (test code 0.00 10 3/uL 0.00-0.00 N = OCT#) RBC MORPHOLOGY COMMENT (test Normal NORMAL code = MOC) PLATELET MORPHOLOGY (test code = NORMAL PLTMORPH) CBC W/AUTO [id number] 10:30:00 Test Item Value Reference Range Interpretation Comments WHITE BLOOD CELL (test 13.5 x10 3/uL 3.2-11.5 H code = WBC) CORRECTED WBC (test 13.5 x10 3/uL 3.2-11.5 H ------- code = CWBC) --- --| ~~ Correcte d WBC Result ~~ | | WBC has been corrected due t o NRBC | --- --- --- RED BLOOD CELL (test 3.59 x10(6)/m 3.70-5.10 L code = RBC) HEMOGLOBIN (test code 10.8 g/dL 12.0-15.0 L = HGB) HEMATOCRIT (test code 32.5 % 35.7-44.8 L = HCT) MEAN CELL VOLUME (test 91 fL 80-100 N code = MCV) MEAN CELL HGB (test 30.1 pg 26.2-33.8 N code = MCH) MEAN CELL HGB 33.2 g/dL 30.0-34.0 N CONCENTRATION (test code = MCHC) RED CELL DISTRIBUTION 13.9 % 11.3-14.5 N WIDTH (test code = RDW) PLATELET COUNT (test 383 x10 3/uL 130-408 N code = PLT) MEAN PLATELET VOLUME 9.9 fL 8.6-12.6 N (test code = MPV) PLATELET ESTIMATE ADEQUATE ADEQUATE (test code = PLTEST) WBC [id number] 10:30:00 Test Item Value Reference Range Interpretation Comments TOTAL CELLS COUNTED (test code = 100 #CELLS TCC) SEGMENTED NEUTROPHILS (test code 53 % 43-65 N = SEG) BAND NEUTROPHIL (test code = 5 % 0-1 H BAND) LYMPHOCYTE (test code = LYMPH) 27 % 20.5-45.5 N MONOCYTE (test code = MON) 10 % 5.5-11.7 N EOSINOPHIL (test code = EOS) 2 % 0.9-2.9 N MYELOCYTE (test code = MYELO) 3 % 0-0 H BAND ABSOLUTE (test code = 0.68 10 3/uL 0.00-0.70 N BAND#) NEUTROPHIL ABSOLUTE (test code = 7.16 10 3/uL 6.00-26.00 N SEG#) LYMPH ABSOLUTE (test code = 3.6 10 3/uL 2.00-17.00 N LYMPH#) ATYPICAL LYMPH ABSOLUTE (test 0.00 10 3/uL 0.00-0.00 N code = ALYMPH#) MONOCYTE ABSOLUTE (test code = 1.35 10 3/uL 0.40-3.10 N MON#) BASOPHIL ABSOLUTE (test code = 0.00 10 3/uL 0.00-0.20 N BASO#) EOSINOPHIL ABSOLUTE (test code = 0.27 10 3/uL 0.00-0.50 N EOS#) METAMYELOCYTE ABSOLUTE (test 0.00 10 3/uL 0.00-0.00 N code = META#) MYELOCYTE ABSOLUTE (test code = 0.41 10 3/uL 0.00-0.00 H MYELO#) PROMYELOCYTE ABSOLUTE (test code 0.00 10 3/uL 0.00-0.00 N = PROM#) BLASTS ABSOLUTE (test code = 0.00 10 3/uL 0.00-0.00 N BLAST#) OTHER CELLS ABSOLUTE (test code 0.00 10 3/uL 0.00-0.00 N = OCT#) RBC MORPHOLOGY COMMENT (test Normal NORMAL code = MOC) PLATELET MORPHOLOGY (test code = NORMAL NORMAL PLTMORPH) CBC W/AUTO [id number] 06:06:00 Test Item Value Reference Range Interpretation Comments WHITE BLOOD CELL (test code = 13.5 x10 3/uL 3.2-11.5 H WBC) RED BLOOD CELL (test code = 3.59 x10(6)/m 3.70-5.10 L RBC) HEMOGLOBIN (test code = HGB) 10.8 g/dL 12.0-15.0 L HEMATOCRIT (test code = HCT) 32.5 % 35.7-44.8 L MEAN CELL VOLUME (test code = 91 fL 80-100 N MCV) MEAN CELL HGB (test code = MCH) 30.1 pg 26.2-33.8 N MEAN CELL HGB CONCENTRATION 33.2 g/dL 30.0-34.0 N (test code = MCHC) RED CELL DISTRIBUTION WIDTH 13.9 % 11.3-14.5 N (test code = RDW) PLATELET COUNT (test code = 383 x10 3/uL 130-408 N PLT) MEAN PLATELET VOLUME (test code 9.9 fL 8.6-12.6 N = MPV) WBC [id number] 06:06:00 Test Item Value Reference Range Interpretation Comments TOTAL CELLS COUNTED (test code = TCC) #CELLS RBC MORPHOLOGY COMMENT (test code = NORMAL MOC) PLATELET MORPHOLOGY (test code = NORMAL PLTMORPH) CBC W/AUTO [id number] 06:06:00 Test Item Value Reference Range Interpretation Comments WHITE BLOOD CELL (test code = 13.5 x10 3/uL 3.2-11.5 H WBC) RED BLOOD CELL (test code = 3.59 x10(6)/m 3.70-5.10 L RBC) HEMOGLOBIN (test code = HGB) 10.8 g/dL 12.0-15.0 L HEMATOCRIT (test code = HCT) 32.5 % 35.7-44.8 L MEAN CELL VOLUME (test code = 91 fL 80-100 N MCV) MEAN CELL HGB (test code = MCH) 30.1 pg 26.2-33.8 N MEAN CELL HGB CONCENTRATION 33.2 g/dL 30.0-34.0 N (test code = MCHC) RED CELL DISTRIBUTION WIDTH 13.9 % 11.3-14.5 N (test code = RDW) PLATELET COUNT (test code = 383 x10 3/uL 130-408 N PLT) MEAN PLATELET VOLUME (test code 9.9 fL 8.6-12.6 N = MPV) WBC [id number] 06:06:00 Test Item Value Reference Range Interpretation Comments TOTAL CELLS COUNTED (test code = TCC) #CELLS RBC MORPHOLOGY COMMENT (test code = NORMAL MOC) PLATELET MORPHOLOGY (test code = NORMAL PLTMORPH) CBC W/AUTO [id number] 13:34:00 Test Item Value Reference Range Interpretation Comments WHITE BLOOD CELL (test code = 12.4 x10 3/uL 3.2-11.5 H WBC) RED BLOOD CELL (test code = 3.47 x10(6)/m 3.70-5.10 L RBC) HEMOGLOBIN (test code = HGB) 10.3 g/dL 12.0-15.0 L HEMATOCRIT (test code = HCT) 31.9 % 35.7-44.8 L MEAN CELL VOLUME (test code = 92 fL 80-100 MCV) MEAN CELL HGB (test code = MCH) 29.7 pg 26.2-33.8 N MEAN CELL HGB CONCENTRATION 32.3 g/dL 30.0-34.0 N (test code = MCHC) RED CELL DISTRIBUTION WIDTH 14.2 % 11.3-14.5 N (test code = RDW) PLATELET COUNT (test code = 362 x10 3/uL 130-408 N PLT) MEAN PLATELET VOLUME (test code 9.8 fL 8.6-12.6 N = MPV) NEUTROPHIL % (test code = NT%) 66.4 % 40.0-70.0 N IMMATURE GRANULOCYTE % (test 2.0 % 0.0-2.0 N code = IG%) LYMPHOCYTE % (test code = LY%) 21.7 % 20-40 N MONOCYTE % (test code = MO%) 8.6 % 1-10 N EOSINOPHIL % (test code = EO%) 1.0 % 0.0-5.0 N BASOPHIL % (test code = BA%) 0.3 % 0.0-1.0 N NUCLEATED RBC % (test code = 0.0 % 0.0-0.9 N NRBC%) NEUTROPHIL # (test code = NT#) 8.2 x10 3/uL 1.6-7.2 H LYMPHOCYTE # (test code = LY#) 2.69 x10 3/uL 1.1-2.7 N MONOCYTE # (test code = MO#) 1.1 x10 3/uL 0.3-0.8 H EOSINOPHIL # (test code = EO#) 0.1 x10 3/uL 0.0-0.5 N BASOPHIL # (test code = BA#) 0.0 x10 3/uL 0.0-0.1 N [id number] 04:25:00 Test Item Value Reference Range Interpretation Comments MAGNESIUM (test code = 5.4 mg/dl 1.8-2.5 HH Criti owen Value MAG) reported toFirs t Name:LAYLA Pat lazar Name:CLAUDIAGERARDTrenton DANIKA [facility] [place] [place], @ 0425. [id number] 22:00:00 Test Item Value Reference Range Interpretation Comments MAGNESIUM (test code = MAG) 4.7 mg/dl 1.8-2.5 H [id number] 14:48:00 Test Item Value Reference Range Interpretation Comments MAGNESIUM (test code = 5.4 mg/dl 1.8-2.5 HH Criti owen Value MAG) reported toFirs t Name:PAULA Last Name:EDILMA Dolan READ BACK AND MARCELL [facility], on 10/10/19, @ 144 8. - BIOPHYS [id number] 11:25:00Patient Name: MARISSA ODELL Unit No: [id number] EXAMS: CPT: [id number] US BIOPHYS PROF [id number] BIOPHYSICAL PROFILE HISTORY: Premature rupture of membranes Comparison: Limited OB ultrasound obtained 10/09/2019 at 2045 hours. LMP: Unknown CLINICAL GESTATIONAL AGE: 25 weeks, 4 days CLINICAL DENNIS: 01/18/2020 PRESENTATION: Transverse PLACENTA: Anterior, no evidence of previa HEART RATE: Basal 138 bpm, Maximum 142 bpm CERVICAL LENGTH: 4.2 cm. A large heterogeneous uterine fibroid is present within the lower uterine segment measuring 6.8 x 7.5 x 9.2 cm slightly obscuring visualization of the cervix. SD ratios: Placental CI: 2.7, mid CI: 2.5, abdominal CI: 2.7 BIOMETRY: BPD 6 cm, 24 weeks, 4 days HC 23.5 cm, 25 weeks, 4 days AC 21.2 cm, 25 weeks, 5 days FL 4.8 cm, 25 weeks, 6 days HL 4.3 cm, 25 weeks, 5 days ESTIMATED WEIGHT 838.5 grams (+/- 125.8 g), (1 pound, 14 ounces +/- 4 ounces) EFW% 37% Gestational age based on this study: 25 weeks, 3 days +/- 1 week, 5 days Estimated date of delivery (US): 12/24/2019 GRADING: Breathin Somatic motion: 2 Tone: 2 Amniotic Fluid: 0 KENDRA 3.4 cm BIOPHYSICAL PROFILE: 03/30 Name: MARA [facility] Phys: Tyrese Hernandez MD [address] [facility] : 2000 Age: 18 Sex: F [place] [id number] Loc: N.1210 1 Exam Date: 10/10/2019 Status: ADM IN PH: FAX: PAGE 1 Signed Report (CONTINUED) Patient Name: MARISSA ODELL Unit No: [id number] EXAMS: CPT: [id number] US BIOPHYS PROF [id number] (Continued) IMPRESSION: Single viable intrauterine with a biophysical profile of 03/30. Oligohydramnios with an KENDRA measuring 3.4 cm. Large fibroid within the lower uterine segment measuring 9.2cm. at 1125 Reported and signed by: FRED ANDRES MD CC: Tyrese Flores MD; Grady Fuentes MD Technologist: MARCO Escobedo Probe: Trscr Dt/Tm: 10/10/2019 (1125) by:[email or web address] Orig Print D/T: S: 10/10/2019 (1128) BATCH NO: N/A Name: MARISSA ODELL [facility] [place] Phys: Tyrese Hernandez MD [address] [facility] : 2000 Age: 18 Sex: F [place] [address] Loc: N.1210 1 Exam Date: 10/10/2019 Status: ADM IN PH: FAX: PAGE 2 Signed [id number] 08:42:00 Test Item Value Reference Range Interpretation Comments MAGNESIUM (test code = 5.6 mg/dl 1.8-2.5 HH Criti owen Value MAG) reported Sharlene t Name:SHELLY georges Name:SHANNAN GARNICA READ BACK AND VERIFIEDby LAUREN VIRK, on 10/10/19, @ 0842. - US [id number] 00:46:00Patient Name: MARISSA ODELL Unit No: [id number] EXAMS: CPT: [id number] [place] LTD [id number] LIMITED OBSTETRICAL ULTRASOUND: CLINICAL INDICATION: position LMP: unknown DENNIS, clinical: 01/18/2020CERVICAL LENGTH: 3.9 cm, closed FETUS: Single, live PRESENTATION: cephalic PLACENTA: Anterior AMNIOTIC FLUID: Low , KENDRA 4.6 cm MOVEMENT: observed HEART RATE: 145 bpm BIOMETRY: BPD 5.9 cm, 24 weeks 0 days HC 22.6 cm, 24 weeks 4 days AC 21.6 cm, 26 weeks 1 day FL 4.8 cm, 26 weeks 0 da ys HUM 4.4 cm, 26 weeks 2 days ESTIMATED WEIGHT 1 lbs. 14 oz. GESTATIONAL AGE BY US: 25 weeks 3 days DENNIS by US: 01/19/2020 COMMENTS: There is an 8 cm fibroid occupying the lower uterine segment. at 0046 Reported and signed by: Jesús Jang MD CC: Grady Fuentes MD Technologist: Rosa Maria Sun Probe: Trsgin Dt/Tm: 10/10/2019 (0046) by:[email or web address] Orig Print D/T: S: 10/10/2019 (0049) BATCH NO: N/A Name: MARISSA ODELL [facility] Phys: Grady Pelayo MD [address] [facility] : 2000 Age: 18 Sex: F [place], [place] [id number] No: [id number] Loc: N.0236 1 Exam Date: 10/09/2019 Status: ADM IN PH: FAX: PAGE 1 Signed Repo rtRAPID PLASMA [id number] 12:35:00 Test Item Value Reference Range Interpretation Comments RAPID PLASMA REAGIN (test code = NEGATIVE NEGATIVE RPR) DRUGS OF ABUSE SCREEN [id number] 09:03:00 Test Item Value Reference Range Interpretation Comments UR COCAINE (test code NEGATIVE NEGATIVE This i s a toxicology = COCAU) qualitative scr eening test only. Ifco nfirmatory testing is grace red please request drug screenconfirmat ion. These results a re unconfirmed and should beused only for medical purposes. Cut-o ff concentration f or Cocaine is 300 ng/mLRec ommended screening cut-o ff concentrations by [facility] and [facility]. UR CANABINOIDS (test NEGATIVE NEGATIVE This is a toxicology code = CANU) qualitative scr eening test only. Ifco nfirmatory testing is grace red please request drug screenconfirmat ion. These results are unc onfirmed and should beus ed only for medical pur poses. Cut-off concent ration for THC is 50 ng/mLRecommende d screening cut-o ff concentrations by the[facility]. UR AMPHETAMINE (test NEGATIVE NEGATIVE The ing estion of natural code = AMPHU) herbal and bo nt productscontain ing Ephedra/Ephedra -Metabolit es can produce in urineone or mor e substances capa ble of cross-reacting withAmphetamine /Methamphe tamine immunoas says. This testprovides a preliminary res ult only. A more specificalterna tive chemical method must be used to obtain aconfirmed analytical resu lt. This is a toxicology qualitative scr eening test only. Ifco nfirmatory testing is grace red please request drug screenconfirmat ion. These results are unc onfirmed and should beus ed only for medical pur poses. Cut-off concent ration for Amphetamines is 1000 ng/mLRecommende d screening cut-o ff concentrations by the[facility] use and [facility]. UR BARBITURATE (test NEGATIVE NEGATIVE This is a toxicology code = BARBQLU) qualitative screening test only. Ifco nfirmatory testing is grace red please request drug screenconfirmat ion. These results are unc onfirmed and should beus ed only for medical pur poses. Cut-off concent ration for Barbiturates is 200 ng/mLRecommende d screening cut-o ff concentrations by [facility] use and [facility] Administration. UR BENZODIAZEPINE NEGATIVE NEGATIVE This is a toxicology (test code = BENZU) qualitat natividad screening test only. Ifco nfirmatory testing is grace red please request drug screenconfirmat ion. These results are unc onfirmed and should beus ed only for medical pur poses. Cut-off concent ration for Benzodiazepines is 200 ng/mLRecommende d screening cut-o ff concentrations by thebstance Ab use and [facility] Administration. UR OPIATES QUAL (test NEGATIVE NEGATIVE This i s a toxicology code = OPIAQLU) qualitative screening test only. Ifco nfirmatory testing is grace red please request drug screenconfirmat ion. These results are unc onfirmed and should beus ed only for medical pur poses. Cut-off concent ration for Opiates is 300 ng/mLRecommende d screening cut-o ff concentrations by [facility] use and [facility] Administration. UR PHENCYCLIDINE NEGATIVE NEGATIVE This is a t oxicology (PCP) (test code = qualitati ve screening PHENCU) test only. Ifco nfirmatory testing is grace red please request drug screenconfirmat ion. These results are unc onfirmed and should beus ed only for medical pur poses. Cut-off concent ration for PCP is 25 ng/mLRecommende d screening cut-o ff concentrations by [facility] and [facility]. Comments to Phleb: URINE IN THE LAB ALREADYAG HEPATITIS B [id number] 07:17:00 Test Item Value Reference Range Interpretation Comments AG HEPATITIS B SURFACE (test code = NEGATIVE NEGATIVE HBSAG) AB HIV 1 07:17:00 Test Item Value Reference Range Interpretation Comments AB HIV 1 2 (test code = TNY42OA) NEGATIVE NEGATIVE COMPREHENSIVE METABOLIC [id number] 06:33:00 Test Item Value Reference Range Interpretation Comments SODIUM (test code = 136 mmol/L 135-145 N NA) POTASSIUM (test 3.5 mmol/L 3.6-5.0 L code = K) CHLORIDE (test code 102 mmol/L 101-111 N = CL) CARBON DIOXIDE 21 mmol/L 21-31 N (test code = CO2) GLUCOSE (test code 72 mg/dl 70-100 N = GLU) BLOOD UREA NITROGEN 5 mg/dl 6-20 L (test code = BUN) GLOMERULAR >=60 max >60 The estimated FILTRATION RATE estimate glomerular (test code = GFR) filtration rate is computed usingpatient ra ce, age (>18), sex, and serum creatinin e. If anyof the ne eded data elements a re missing the Laboratory cesia ot compute an estimation of t he glomerular filtration rate . CREATININE (test 0.41 mg/dL 0.44-1.03 L code = CREAT) TOTAL PROTEIN (test 6.6 g/dL 6.7-8.2 L code = PROT) ALBUMIN (test code 3.0 g/dL 3.2-5.5 L = ALB) CALCIUM (test code 9.1 mg/dL 8.5-10.5 N = CA) BILIRUBIN TOTAL 0.20 mg/dL 0.2-1.3 N (test code = BILT) SGOT/AST (test code 36 U/L 10-42 N = AST) SGPT/ALT (test code 17 U/L 10-60 N = ALT) ALKALINE 80 U/L 42-121 N PHOSPHATASE (test code = ALKP) CBC W/AUTO [id number] 06:23:00 Test Item Value Reference Range Interpretation Comments WHITE BLOOD CELL (test code = 16.7 x10 3/uL 3.2-11.5 H WBC) RED BLOOD CELL (test code = 3.84 x10(6)/m 3.70-5.10 N RBC) HEMOGLOBIN (test code = HGB) 11.5 g/dL 12.0-15.0 L HEMATOCRIT (test code = HCT) 33.7 % 35.7-44.8 L MEAN CELL VOLUME (test code = 88 fL 80-100 N MCV) MEAN CELL HGB (test code = MCH) 29.9 pg 26.2-33.8 N MEAN CELL HGB CONCENTRATION 34.1 g/dL 30.0-34.0 H (test code = MCHC) RED CELL DISTRIBUTION WIDTH 13.6 % 11.3-14.5 N (test code = RDW) PLATELET COUNT (test code = 352 x10 3/uL 130-408 N PLT) MEAN PLATELET VOLUME (test code 10.0 fL 8.6-12.6 N = MPV) NEUTROPHIL % (test code = NT%) 79.2 % 40.0-70.0 H IMMATURE GRANULOCYTE % (test 0.7 % 0.0-2.0 N code = IG%) LYMPHOCYTE % (test code = LY%) 13.4 % 20-40 L MONOCYTE % (test code = MO%) 5.7 % 1-10 N EOSINOPHIL % (test code = EO%) 0.7 % 0.0-5.0 N BASOPHIL % (test code = BA%) 0.3 % 0.0-1.0 N NUCLEATED RBC % (test code = 0.0 % 0.0-0.9 N NRBC%) NEUTROPHIL # (test code = NT#) 13.2 x10 3/uL 1.6-7.2 H LYMPHOCYTE # (test code = LY#) 2.24 x10 3/uL 1.1-2.7 N MONOCYTE # (test code = MO#) 1.0 x10 3/uL 0.3-0.8 H EOSINOPHIL # (test code = EO#) 0.1 x10 3/uL 0.0-0.5 N BASOPHIL # (test code = BA#) 0.1 x10 3/uL 0.0-0.1 N - US [id number] 06:14:00Patient Name: MARISSA ODELL Unit No: [id number] EXAMS: CPT: [id number] [place] L[place] 96844 LIMITED OBSTETRICAL ULTRASOUND: CLINICAL INDICATION: Presentation LMP: unknown DENNIS, clinical: 01/18/2020CERVICAL LENGTH: 4.3 cm, closed FETUS: Single, live PRESENTATION: Transverse PLACENTA: Anterior AMNIOTIC FLUID: Normal , KENDRA 9 cm MOVEMENT: observed HEART RATE: 165 bpm BIOMETRY: BPD 6.2 cm, 25 weeks 1 day HC 22.9 cm, 25 weeks 0 days AC 21 cm, 25 weeks 4 days FL 4.7 cm, 25 weeks 4 days HUM 4.3 cm, 25 weeks 4 days ESTIMATED WEIGHT 1 lbs. 13 oz. GESTATIONAL AGE BY US: 25 weeks 3days DENNIS by US: 01/19/2020 at 0614 Reported and signed by: Jesús Jang MD CC: Ping Birch MD; Grady Fuentes MD Technologist: RADHA. Probe: Trscr Dt/Tm: 10/09/2019 (0614) by:[email or web address] Orig Print D/T: S: 10/09/2019 (0618) BATCH NO: N/A Name: MARISSA [facility] Phys: ESTER. Ping Birch MD [address] :2000 Age: 18 Sex: F [place] [address] Loc: N.0237 1 Exam Date: 10/09/2019 Status: ADM IN PH: FAX: PAGE 1 Signed ReportPROTHROMBIN [id number] 05:47:00 Test Item Value Reference Range Interpretation Comments PROTHROMBIN TIME 10.4 SECONDS 9.6-13.0 N PATIENT (test code = PTP) INTERNATIONAL NORMAL 0.9 The INR is to be RATIO (test code = used only for INR) monitoring oral anticoagulantth erap y. INDICATION INR VALUE ---- ---- ---- --------1. Prophylaxis, de ep venous thrombos is, 2.0 - 2.5 inclu ding high-risk surgery.2. Prophylaxis, de ep venous thrombos is, 2.0 - 3.0 hip surgery, treatm ent for deep venous thrombosis or pulmonary prevention of systemic emboli sm in patients wit h valvular heart disease, atrial fibrillation, tissue heart va lve, or acute myocar dial infarction.3. Mechanical prosthesis hear t valves, 3.0 - 4 .5 recurrent syste mira embolism. THROMBOPLASTIN TIME [id number] 05:47:00 Test Item Value Reference Range Interpretation Comments THROMBOPLASTIN TIME PARTIAL (test 28 SECONDS 25-37 N code = PTT) [id number] 05:47:00 Test Item Value Reference Range Interpretation Comments FIBRINOGEN (test code = FIB) 444 mg/dL 180-425 H URINALYSIS [id number] 05:47:00 Test Item Value Reference Range Interpretation Comments UA COLOR (test code = COLU) Straw YELLOW UA APPEARANCE (test code = APPU) HAZY CLEAR UA GLUCOSE DIPSTICK (test code = NEGATIVE NEGATIVE DGLUU) UA BILIRUBIN DIPSTICK (test code = NEGATIVE NEGATIVE BILU) UA KETONE DIPSTICK (test code = NEGATIVE NEGATIVE KETU) UA SPECIFIC GRAVITY (test code = 1.005 1.001-1.030 SGU) UA BLOOD DIPSTICK (test code = ARTIS) 3+ NEGATIVE UA PH DIPSTICK (test code = GISELLE) 7.0 5.0-9.0 UA PROTEIN DIPSTICK (test code = NEGATIVE NEGATIVE PROU) UA UROBILINOGEN DIPSTICK (test code NEGATIVE <=1.0 = URO) UA NITRITE DIPSTICK (test code = NEGATIVE NEGATIVE EDUARDO) UA ASCORBIC ACID DIPSTICK (test NEGATIVE code = AAU) UA LEUKOCYTE ESTERASE DIPSTICK 3+ NEGATIVE A (test code = LEUU) UA WBC (test code = WBCU) TNTC /HPF 0-5 A UA RBC (test code = RBCU) 6-10 /HPF 0-5 UA EPITHELIAL CELLS (test code = FEW /LPF NONE-FEW EPIU) UA BACTERIA (test code = BACU) 1+ /HPF NONE SEEN A UA MUCUS (test code = MUCU) 1+ /LPF NONE SEEN UA AMORPHOUS SEDIMENT (test code = RARE /HPF NONE SEEN AMORU) UR HCG [id number] 14:54:00 Test Item Value Reference Range Interpretation Comments UR HCG QUAL (test code = HCGQLU) POSITIVE NEGATIVE URINALYSIS DIPSTICK [id number] 14:53:00 Test Item Value Reference Range Interpretation Comments UA COLOR (test code = COLU) Yellow YELLOW UA APPEARANCE (test code = Clear CLEAR APPU) UA GLUCOSE DIPSTICK (test code NEGATIVE MG/AL NEGATIVE = DGLUU) UA BILIRUBIN DIPSTICK (test NEGATIVE NEGATIVE code = BILU) UA KETONE DIPSTICK (test code 80 (3+) MG/DL NEGATIVE = KETU) UA SPECIFIC GRAVITY (test code 1.015 1.000-1.030 = SGU) UA BLOOD DIPSTICK (test code = NEGATIVE NEGATIVE ARTIS) UA PH DIPSTICK (test code = 6.5 4.5-8.5 GISELLE) UA PROTEIN DIPSTICK (test code NEGATIVE NEGATIVE = PROU) UA UROBILINOGEN DIPSTICK (test 0.2 EU/dL <=1.0 code = URO) UA NITRITE DIPSTICK (test code NEGATIVE NEGATIVE = EDUARDO) UA LEUKOCYTE ESTERASE DIPSTICK NEGATIVE NEGATIVE (test code = LEUU) URINALYSIS [id number] 11:16:00 Test Item Value Reference Range Interpretation Comments UA COLOR (test code = COLU) Straw YELLOW UA APPEARANCE (test code = APPU) Clear CLEAR UA GLUCOSE DIPSTICK (test code = NEGATIVE NEGATIVE DGLUU) UA BILIRUBIN DIPSTICK (test code = NEGATIVE NEGATIVE BILU) UA KETONE DIPSTICK (test code = NEGATIVE NEGATIVE KETU) UA SPECIFIC GRAVITY (test code = 1.005 1.001-1.030 SGU) UA BLOOD DIPSTICK (test code = ARTIS) NEGATIVE NEGATIVE UA PH DIPSTICK (test code = GISELLE) 7.0 5.0-9.0 UA PROTEIN DIPSTICK (test code = NEGATIVE NEGATIVE PROU) UA UROBILINOGEN DIPSTICK (test code NEGATIVE <=1.0 = URO) UA NITRITE DIPSTICK (test code = NEGATIVE NEGATIVE EDUARDO) UA ASCORBIC ACID DIPSTICK (test NEGATIVE code = AAU) UA LEUKOCYTE ESTERASE DIPSTICK NEGATIVE NEGATIVE (test code = LEUU) UA WBC (test code = WBCU) 0-5 /HPF 0-5 UA RBC (test code = RBCU) 0-5 /HPF 0-5 UA EPITHELIAL CELLS (test code = RARE /LPF NONE-FEW EPIU) UA BACTERIA (test code = BACU) None /HPF NONE SEEN UA MUCUS (test code = MUCU) 1+ /LPF NONE SEEN - US [id number] 15:58:00Patient Name: MARISSA ODELL Unit No: [id number] EXAMS: CPT: [id number] [place] L[place] [address]209 LIMITED OBSTETRICAL ULTRASOUND: HISTORY: TRAUMA, 16 WEEKS PREG COMPARISON: TECHNIQUE: Transabdominal scanning with webb scale, color Doppler and spectral Doppler. COMPARISON: 07/26/2019 FINDINGS: LMP: unknown EDC, Clinical: 01/15/2020 Fetus: Single, live, transverse lie with head on maternal left Placenta: Anterior, without previa or retroplacental hemorrhage, placenta is immature. Amniotic fluid: Norm al amount, KENDRA = 13.1 cm , between the 50th and 95th percentile for gestational age. movement:Observed Heart rate: 165 beats per minute BIOMETRY: BPD 3.9 cm, 17 weeks 6 days HC 14.3 cm, 17 weeks 4 days AC 12.4 cm, 18 weeks 0 days FL 2.6 cm, 18 weeks 0 days EFW: 217 +/- 33 g EFW% 51.1 Gestational age (US): 17 weeks 6 days +/- 1 week 2 days EDC: 01/15/2020 Cervical Length: 3.5 cm, Endocervical canal is closed. Again noted is a fibroid in the anterior lower uterine segment measuring 10.2 x 9.5 x 11.4 cm. This is unchanged. IMPRESSION: Normal limited obstetrical ultrasound. Name: MARISSA ODELL [facility] Phys: Lory Cervantes MD [address] [facility] : 2000 Age: 18 Sex: F [place] [address] Loc: N.ERS Exam Date: 08/13/2019 Status: REG ER PH: FAX: PAGE 1 Signed Report (CONTINUED) Patient Name: MARISSA ODELL Unit No: [id number] EXAMS: CPT: [id number] LTD 40014 (Continued) If a full evaluation is required, a complete obstetrical ultrasound can be performed on an elective basis. at 1558 Reported and signed by: Sarbjit Chavarria MD CC: Lory Vidal MD Technologist: Nisa Appiah Probe: Trscr Dt/Tm: 08/13/2019 (1558) by:[email or web address] Orig Print D/T: S: 08/13/2019 (1601) BATCH NO: N/A Name: MARISSA ODELL [facility] Phys: NGLory Bess MD [address] [facility] : 2000 Age: 18 Sex: F [place] [address] Loc: N.ERS Exam Date: 08/13/2019 Status: REG ER PH: FAX: PAGE 2 Signed Report- US [id number] 18:25:00Patient Name: MARISSA ODELL Unit No: [id number] Report Has Been Amended EXAMS: CPT: [id number] [place] L[place] [address]13 Addendum - 07/26/2019 SIGNED 07/26/2019 ADDENDUM: [id number] US/USPREGLTD Placenta is anterior and fundal. Conclusion is unchanged. at 1825 Reported and signed by: Cleveland Hoffman MD Transcribed: 07/26/2019 (1825) [email or web address] Report LIMITED OBSTETRICAL ULTRASOUND: History: Nausea vomiting. Previous history of ectopic . Possible retained products of conception. COMPARISON: None FINDINGS: There is a large ovoid heterogeneous mass in the lower uterine segment and cervical region inferior to the intrauterine gestational sac. This probably represents a large fibroid. This measures 11.1 x 8.8 x 8.8 cm. There is some color Doppler flow more so in the periphery of the mass. Fetus: Single, Breech presentation. Placenta: Posterior and fundal Amniotic fluid: Normal volume with small amount of debris. Debris is nonspecific finding movement: Observed Heart rate: 159 beats per minute Gestational age (US): 15 weeks 2 days standard deviation 1 weeks 0 days, EDC: January 15, 2020 Estimated weight: 1 21 g standard deviation 18 grams IMPRESSION 11.1 x 8.8 cm large heterogeneous mass lower uterine segment and cervical region obscuring the cervix probably represents a large fibroid. This is inferior to the intrauterine . Name: MARISSA ODELL [facility] Phys: Kely Reddy MD [address] [facility] : 2000 Age: 18 Sex: F [place] [address] Loc: N.ERS Exam Date: 07/26/2019 Status: DEP ER PH: FAX: PAGE 1 Signed Report (CONTINUED) Patient Name: MARISSA ODELL Unit No: [id number] Report Has Been Amended EXAMS: CPT: [id number] [place] LTD 90859 (Continued) Follow-up highway painter evaluation is recommended follow-up. No acute abnormality seen with the fetus. Small amount of debris in the amniotic fluid is nonspecific. If a full evaluation is required, a complete obstetrical ultrasound can be performed on an elective basis. Findings telepho yeison to the emergency room and discussed with Dr. Chan on July 26, 2019 at 3:07 PM at 1510 Reported and signed by: Cleveland Hoffman MD CC: Technologist: Christianne Lunsford Probe: Trscr Dt/Tm: 07/26/2019 (1510) by:[email or web address] Orig Print D/T: S: 07/26/2019 (1513) BATCH NO: N/A Name: MARISSA ODELL [facility] Phys: Kely Reddy MD [address] [facility] : 2000 Age: 18 Sex: F [place] [address] Loc: N.ERS Exam Date: 07/26/2019 Status: DEP ER PH: FAX: PAGE 2 Signed Report- US [id number] 15:10:00Patient Name: MARISSA ODELL Unit No: [id number] EXAMS: CPT: [id number] [place] L[place] [address]017 LIMITED OBSTETRICAL ULTRASOUND: History: Nausea vomiting. Previous history of ectopic . Possibleretained products of conception. COMPARISON: None FINDINGS: There is a large ovoid heterogeneous mass in the lower uterine segment and cervical region inferior to the intrauterine gestational sac. This probably represents a large fibroid. This measures 11.1 x 8.8 x 8.8 cm. There is some color Dopplerflow more so in the periphery of the mass. Fetus: Single, Breech presentation. Placenta: Posterior and fundal Amniotic fluid: Normal volume with small amount of debris. Debris is nonspecific finding movement: Observed Heart rate: 159 beats per minute Gestational age (US): 15 weeks 2 days standard deviation 1 weeks 0 days, EDC: January 15, 2020 Estimated weight: 1 21 g standard deviation 18 grams IMPRESSION 11.1 x 8.8 cm large heterogeneous mass lower uterine segment and cervical region obsc uring the cervix probably represents a large fibroid. This is inferior to the intrauterine . Follow-up highway painter evaluation is recommended follow- up. No acute abnormality seen with the fetus. Small amount of debris in the amniotic fluid is nonspecific. If a full evaluation is required, a complete obstetrical ultrasound can be performed on an elective basis. Findings telephoned to the emergency room and discussed with Dr. Chan on July 26, 2019 at 3:07 PM at 1510 Reported and signed by: Cleveland Hoffman MD Name: MARISSA ODELL [facility] Phys: Kely Reddy MD [address] [facility] : 2000 Age: 18 Sex: F [place] [address] Loc: N.ERS Exam Date: 07/26/2019 Status: REG ER PH: FAX: PAGE 1 Signed Report (CONTINUED) Patient Name: MARISSA ODELL Unit No: [id number] EXAMS: CPT: [id number] [facility] [address] (Continued) CC: Technologist: Christianne Lunsford Probe: Trsgin Dt/Tm: 2018 (1510) by:[email or web address] Orig Print D/T: S: 07/26/2019 (1513) BATCH NO: N/A [facility] [address] [facility] : 2000 Age: 18 Sex: F [place] [address] Loc: N.ERS Exam Date: 07/26/2019 Status: REG ER PH: FAX: PAGE 2 Signed ReportHCG [id number] 13:42:00 Test Item Value Reference Range Interpretation Comments HCG SERUM (test 55052.0 mIU/ml Interpreti ve Data:HCG code = HCG) Quant BhCG Refe rence Ranges <5.0 mIU /ml Non- Ap prox. Gestational Age Reference Range (hCG in mIU/mL) 0.2-1.0 weeks 5-50 1-2 weeks 50-500 2-3 weeks 100-5 ,000 3-4 weeks 500-10,00 0 4-5 weeks 1,000-50, 000 5-6 weeks 10,000-10 0,000 6-8 weeks 15,000-200,000 8-12 weeks 10,000-10 0,000 A test result yovany t is inconsistent wi th the clinical pictur eand patient history should be interpreted with caution. This t est is not intended fo r use as a surrogate mar adolfo schmitzaiding in e diagnosis of mo nitoring the treatment o fcancer patients URINALYSIS [id number] 12:38:00 Test Item Value Reference Range Interpretation Comments UA COLOR (test code = COLU) YELLOW YELLOW UA APPEARANCE (test code = APPU) Turbid CLEAR UA GLUCOSE DIPSTICK (test code = NEGATIVE NEGATIVE DGLUU) UA BILIRUBIN DIPSTICK (test code = NEGATIVE NEGATIVE BILU) UA KETONE DIPSTICK (test code = NEGATIVE NEGATIVE KETU) UA SPECIFIC GRAVITY (test code = 1.017 1.001-1.030 SGU) UA BLOOD DIPSTICK (test code = NEGATIVE NEGATIVE ARTIS) UA PH DIPSTICK (test code = GISELLE) 8.0 5.0-9.0 UA PROTEIN DIPSTICK (test code = NEGATIVE NEGATIVE PROU) UA UROBILINOGEN DIPSTICK (test NEGATIVE <=1.0 code = URO) UA NITRITE DIPSTICK (test code = NEGATIVE NEGATIVE EDUARDO) UA ASCORBIC ACID DIPSTICK (test NEGATIVE code = AAU) UA LEUKOCYTE ESTERASE DIPSTICK NEGATIVE NEGATIVE (test code = LEUU) UA WBC (test code = WBCU) 11-20 /HPF 0-5 UA RBC (test code = RBCU) 0-5 /HPF 0-5 UA EPITHELIAL CELLS (test code = MANY /LPF NONE-FEW EPIU) UA BACTERIA (test code = BACU) 2+ /HPF NONE SEEN A UA MUCUS (test code = MUCU) 1+ /LPF NONE SEEN UA AMORPHOUS SEDIMENT (test code = 3+ /HPF NONE SEEN AMORU) BASIC METABOLIC [id number] 12:30:00 Test Item Value Reference Range Interpretation Comments SODIUM (test code 135 mmol/L 135-145 N = NA) POTASSIUM (test 3.6 mmol/L 3.6-5.0 N code = K) CHLORIDE (test 103 mmol/L 101-111 N code = CL) CARBON DIOXIDE 24 mmol/L 21-31 N (test code = CO2) GLUCOSE (test code 82 mg/dl 70-100 N = GLU) BLOOD UREA 5 mg/dl 6-20 L NITROGEN (test code = BUN) GLOMERULAR >=60 max >60 The estimated FILTRATION RATE estimate glomerular (test code = GFR) filtration rate is computed usingpatient ra ce, age (>18), sex, and serum creatinin e. If anyof the neede d data elements a re missing the Laboratory cesia ot compute an estimation of t he glomerular filtration rate . CREATININE (test 0.35 mg/dL 0.44-1.03 L code = CREAT) CALCIUM (test code 8.8 mg/dL 8.5-10.5 N = CA) LIVER FUNCTION [id number] 12:30:00 Test Item Value Reference Range Interpretation Comments TOTAL PROTEIN (test code = PROT) 6.3 g/dL 6.7-8.2 L ALBUMIN (test code = ALB) 3.1 g/dL 3.2-5.5 L BILIRUBIN TOTAL (test code = BILT) 0.40 mg/dL 0.2-1.3 N BILIRUBIN DIRECT (test code = 0.1 mg/dL 0.00-0.20 N BILD) SGOT/AST (test code = AST) 16 U/L 10-42 N SGPT/ALT (test code = ALT) 11 U/L 10-60 N ALKALINE PHOSPHATASE (test code = 49 U/L 42-121 N ALKP) [id number] 12:30:00 Test Item Value Reference Range Interpretation Comments LIPASE (test code = LIP) 30 IU/L 22-51 N BASIC METABOLIC [id number] 12:22:00 Test Item Value Reference Range Interpretation Comments SODIUM (test code 135 mmol/L 135-145 N = NA) POTASSIUM (test 3.6 mmol/L 3.6-5.0 N code = K) CHLORIDE (test 103 mmol/L 101-111 N code = CL) CARBON DIOXIDE 24 mmol/L 21-31 N (test code = CO2) GLUCOSE (test code 82 mg/dl 70-100 N = GLU) BLOOD UREA 5 mg/dl 6-20 L NITROGEN (test code = BUN) GLOMERULAR >=60 max >60 The estimated FILTRATION RATE estimate glomerular (test code = GFR) filtration rate is computed usingpatient ra ce, age (>18), sex, and serum creatinin e. If anyof the neede d data elements a re missing the Laboratory cesia ot compute an estimation of t he glomerular filtration rate . CREATININE (test 0.35 mg/dL 0.44-1.03 L code = CREAT) CALCIUM (test code 8.8 mg/dL 8.5-10.5 N = CA) LIVER FUNCTION [id number] 12:22:00 Test Item Value Reference Range Interpretation Comments TOTAL PROTEIN (test code = PROT) 6.3 g/dL 6.7-8.2 L ALBUMIN (test code = ALB) 3.1 g/dL 3.2-5.5 L BILIRUBIN TOTAL (test code = BILT) mg/dL 0.2-1.3 BILIRUBIN DIRECT (test code = BILD) mg/dL 0.00-0.20 SGOT/AST (test code = AST) U/L 10-42 SGPT/ALT (test code = ALT) U/L 10-60 ALKALINE PHOSPHATASE (test code = U/L 42-121 ALKP) [id number] 12:22:00 Test Item Value Reference Range Interpretation Comments LIPASE (test code = LIP) 30 IU/L 22-51 N HCG SERUM [id number] 12:21:00 Test Item Value Reference Range Interpretation Comments HCG SERUM QUAL POSITIVE NEGATIVE This is a nani litative (test code = HCGQL) screenin g test.The quantitative Bh cg may be helpful.Weakly positive results should be repeated in 48 hours. CBC W/AUTO [id number] 12:08:00 Test Item Value Reference Range Interpretation Comments WHITE BLOOD CELL (test code = 13.4 x10 3/uL 3.2-11.5 H WBC) RED BLOOD CELL (test code = 4.15 x10(6)/m 3.70-5.10 N RBC) HEMOGLOBIN (test code = HGB) 12.8 g/dL 12.0-15.0 N HEMATOCRIT (test code = HCT) 38.1 % 35.7-44.8 N MEAN CELL VOLUME (test code = 92 fL 80-100 N MCV) MEAN CELL HGB (test code = MCH) 30.9 pg 26.2-33.8 N MEAN CELL HGB CONCENTRATION 33.7 g/dL 30.0-34.0 N (test code = MCHC) RED CELL DISTRIBUTION WIDTH 14.3 % 11.3-14.5 N (test code = RDW) PLATELET COUNT (test code = 298 x10 3/uL 130-408 N PLT) MEAN PLATELET VOLUME (test code 7.9 fl 6.4-10.5 N = MPV) NEUTROPHIL % (test code = NT%) 77.3 % 40.0-70.0 H LYMPHOCYTE % (test code = LY%) 13.1 % 20-40 L MONOCYTE % (test code = MO%) 8.1 % 1-10 N EOSINOPHIL % (test code = EO%) 1.0 % 1.0-5.0 N BASOPHIL % (test code = BA%) 0.5 % 0.0-1.0 N NEUTROPHIL # (test code = NT#) 10.4 x10 3/uL 1.6-7.2 H LYMPHOCYTE # (test code = LY#) 1.80 x10 3/uL 1.1-2.7 N MONOCYTE # (test code = MO#) 1.1 x10 3/uL 0.3-0.8 H EOSINOPHIL # (test code = EO#) 0.1 x10 3/uL 0.0-0.5 N BASOPHIL # (test code = BA#) 0.1 x10 3/uL 0.0-0.1 N UR HCG [id number] 20:31:00 Test Item Value Reference Range Interpretation Comments UR HCG QUAL (test code = HCGQLU) POSITIVE NEGATIVE URINALYSIS [id number] 18:53:00 Test Item Value Reference Range Interpretation Comments UA COLOR (test code = COLU) YELLOW YELLOW UA APPEARANCE (test code = APPU) HAZY CLEAR UA GLUCOSE DIPSTICK (test code = NEGATIVE NEGATIVE DGLUU) UA BILIRUBIN DIPSTICK (test code = NEGATIVE NEGATIVE BILU) UA KETONE DIPSTICK (test code = NEGATIVE NEGATIVE KETU) UA SPECIFIC GRAVITY (test code = 1.020 1.001-1.030 SGU) UA BLOOD DIPSTICK (test code = ARTIS) NEGATIVE NEGATIVE UA PH DIPSTICK (test code = GISELLE) 7.0 5.0-9.0 UA PROTEIN DIPSTICK (test code = NEGATIVE NEGATIVE PROU) UA UROBILINOGEN DIPSTICK (test code 4.0 <=1.0 A = URO) UA NITRITE DIPSTICK (test code = NEGATIVE NEGATIVE EDUARDO) UA ASCORBIC ACID DIPSTICK (test NEGATIVE code = AAU) UA LEUKOCYTE ESTERASE DIPSTICK NEGATIVE NEGATIVE (test code = LEUU) UA WBC (test code = WBCU) 0-5 /HPF 0-5 UA RBC (test code = RBCU) 0-5 /HPF 0-5 UA EPITHELIAL CELLS (test code = MANY /LPF NONE-FEW EPIU) UA BACTERIA (test code = BACU) 1+ /HPF NONE SEEN A UA MUCUS (test code = MUCU) 1+ /LPF NONE SEEN Notes Date/Time Note Provider Source 2023-07-15 14:17:00 [id number] [facility] PATIENT NAME: MARISSA ODELL ADMIT DATE: 07/15/23ACCOUNT NO: [id number] ROOM NO: AGE: 22 REPORT TYPE: eEKG REPORT SEX: F DATE OF : 98ADMITTING PHYSICIAN: ATTENDING PHYSICIAN: Order:[id number] Reason : Test Date/Time Stamp:MonJul 15 2023 14:17:27Blood Pressure : / mmHGVent. Rate : 133 BPM Atrial Rate : 133 BPM P-R Int : 122 ms QRS Dur : 060 ms QT Int : 292 ms P-R-T Axes : 063 036 068 degrees QTc Int : 434 ms Sinus tachycardiaPossible Left atrial enlargementBorderline ECGNo previous ECGs availableConfirmed by MAURICIO CHOWDHURY MD ([id number]) on 07/17/2023 9:43:19 AM Referred By: Self Referred Confirmed by:MAURICIO CHOWDHURY MD PATIENT NAME: MARISSA ODELL .[id number] AVAvailable for patient [id number]:43:53 2023-05-12 09:57:00 [id number]:57:00 [facility] ([facility])EMERGENCY PROVIDER REPORTREPORT#:[id number] REPORT STATUS: SignedDATE:05/12/23 TIME: 956 PATIENT: MARISSA ODELL UNIT #: [id number]#: [id number] ROOM/BED:AGE: 22 SEX: F PCP PHYS: N o Primary or Family PhysicianSERVICE AUTHOR: Santi Abad MD * ALL edits or amendments must be made on the electronic/computer document * HPI-Dental/Mouth Prob Free Text HPI NotesFree Text HPI Notes22 yo F with no PMH here with "bump" inside lower lip for months. States she kept biting it causing it to return and now it won't get better, she is concerned it is infected. No fever or discharge. GeneralInitial Greet Date/Time 05/12/23 0955 PresentationChief Complaint Cold soreLocation Li p lower Review of Systems ROS StatementsAll system s rev neg except as marked. Past Medical History - AdultStated Complaint BUMP INSIDE LIPAllergiesUncoded Allergies:GRASS (SNEEZING 04/19/09) Physical Exam Vital SignsVital SignsFirst Documented: Result Date Time Pulse Ox 98 05/12 0954 B/P 114/71 05/12 0954 B/P Mean 85 05/12 0954 Temp 37.3 05/12 0954 Pulse 72 05/12 0954 Resp 16 05/12 0954 O2 Delivery Room air 05/12 1025 Last Documented: Result Date Time Pulse Ox 99 05/12 1025 B/P 118/69 05/12 1025 B/ P Mean 85 05/12 1025 O2 Delivery Room air 05/12 1025 Temp 37.2 05/12 1025 Pulse 78 05/12 1025 Resp 16 05/12 1025 Review of Vital Signs Reviewe d Focused PEGeneral/Const General/Const Awake, Alert, Well appearingMS Head Head NormocephalicEars/Nose/Throat Text/Dict Notes 4 mm raised nodule to center of mucosal surface of lower lip with vesicular inclusions and hypervascularity MS Neck Neck Supple, No meningismus, Full range of motion, No adenopathy , No swelling, Non-tender, No massesResp/Chest Respiratory/Chest Breath sounds NL, Breath sound s = bilat, No respiratory distress, No rales, No rhonchi, No wheezing, No stridorNeurologic Neurologic Oriented X3, Speech NL, No motor deficits, No sensory deficits Interpretation Diagnostics Point of Care TestingPulse Oximetry Pulse Ox % 98 On: Room air Interpretation Interpreted by me, Pulse oximetry normal Time 0954 Re-Evaluation MDM Free Text MDM NotesFree Text MDM Noteslesion to lower lip after repetative trauma. No bleeding.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 discharge, or inability to bear weight. Denies a PMH or allergies. Currently on menses. GeneralConfirmed Patient YesPatient Type New patientInitial Greet Date/Time 06/14/21 1237 PresentationChief Complaint Foot injury R, Foot pain RHx Obtained From PatientOnset Occurred Days agoAssociated withReports: Painful extremity. Denies: Fever, Joint swelling, Neuro symptoms pre-arriv, Numbness, Rash, Swollen extremity. Review of Systems Basic Review of SystemsBasic ROS RESP: N o SOB, CV: No chest pain, GI: No abd pain/vomiting Focused Review of SystemsConstitutionalDenies: Chills, Fatigue, Fever. MusculoskeletalReports: Extremity pain. Denies: Back pain, Extremity swelling, Joint pain, Joint swelling, Neck pain. SkinReports: Abrasion, Erythema. Denies: Laceration, Swelling. NeurologicDenies: Focal weakness, Numbness, Tingling. Past Medical History - AdultStated Complaint CUT TO FOOTAllergiesCoded Allergies:No Known Allergies (07/25/19) Home MedicationsActive ScriptsAmoxicillin/Clav K (Amox-Clav 875/125 Mg) 875 MG PO Q12H Amoxicillin/Clav K (Amox-Clav 875/125 Mg) 875 MG PO Q12H #20 TABS Prov: 05/28/21Amoxicillin/Clav K (Amox-Clav 875/125 Mg ) 875 MG PO BID Amoxicillin/Clav K (Amox-Clav 875/125 Mg) 875 MG PO BID #10 TAB Prov: 07/02/20 Reported MedicationsAcetaminophen (Tylenol) 650 MG PO Q6H PRN See Instructions Ibuprofen (Motrin ) 600 MG PO Q6H PRN BREAKTHROUGH PAIN Review of Nursing Notes Triage notes reviewedAlcohol Use Denies EtOH useDrug Use Denies recreational drugsSmoking status: Smoking status for patients 13 years old or older: Current every day smokerOther Social History Local resident Physical Exam Vital SignsVital SignsFirst Documented: Result Date Time Pulse Ox 99 06/14 1237 B/P 117/67 06/14 1237 B/P Mean 83.6 06/14 1237 Temp 36.9 06/14 1237 Pulse 75 08 1237 Resp 18 06/14 1237 Last Documented: Result Date Time Pulse Ox 99 06/14 1237 B/P 117/67 06/14 123 7 B/P Mean 83.6 06/14 1237 Temp 36.9 06/14 1237 Pulse 75 06/14 1237 Resp 18 06/14 1237 Review of Vital Signs Reviewed ImagesAnkle/Foot Feet - Bottom View (L)[Embedded Image Not Available] 1) 2x2cm open wound w/ surrounding redness.+mild discharge. Free Text PE NotesFree Text PE NotesGeneral: Awake, NAD, sitting calm, no distressHead: Atraumatic and normocephalicEyes: PERRL, EOMI, no periorbital swelling, no periorbital rednessThroat: Moist mucous membranesNeck: Full ROM, supple, no C-spine tendernessCV: Regular rhythm, warm and well perfused, Respiratory: no respiratory distress,GI: Soft, nontender, nondistended. No rebound or guardingGU: DeferredMSK Back: Full ROM, no spinal tendernessExtremities: Neurovascularly intact, no deformities, no swelling. See images forwound description.Neuro: Aaox4, speech normal, cranial nerves grossly intact, moving all extremities, appropriate interaction, gait normalSkin: warm, dry, no rashes, No erythema.Psych: Affect normal, mood normal, normal thought content Interpretation Diagnostics Lab Results InterpretationResultsRecent Impressions:RADIOLOG Y - XR FOOT 3 + V RT 06/14 1254 Report Impression - Status: SIGNED Entered: 06/14/2021 1313 IMPRESSION: Normal right foot.Impression By : [email or web address] - Sarbjit Chavarria MD Imaging StatementRadiographic studies reviewed and considered in the medical decision-making. Point of Care TestingPulse Oximetry Pulse Ox % 99 On: Room air Interpretation Interpreted by me, Pulse oximetry normal Re-Evaluation MDM Free Text MDM NotesFree Text MDM NotesPatient evaluated for wound on the plantar foot at the right first MPJ . No abnormality on x-ray. Given the surrounding cellulitis, I will initiate patienton topical an d oral antibiotics and have her follow-up with podiatry on first available appointment. Patient agrees with plan of care verbalizing content. Return to EC precautions given. ED CourseMedication(s) OrderedMedication(s) Ordered:Serums, Toxoids, And Vaccines Sig/Jaylen Start time Last Medication Dose Route Stop Time Status Admin Tetanus/Diphtheria 0.5 ML X1ED STA 06/14 1240 DC 06/14 Toxoids IM 06/14 1241 1521 Patient Discharge Departure Vital Signs/ConditionVital SignsFirst Documented: Result Date Time Pulse Ox 99 06/14 1237 B/P 117/67 06/14 1237 B/P Mean 83.6 06/14 1237 Temp 36.9 06/14 1237 Pulse 75 06/14 1237 Resp 18 06/14 1237 Last Documented: Result Date Time Pulse Ox 99 06/14 1237 B/P 117/67 06/14 1237 B/P Mean 83.6 06/14 1237 Temp 36.9 06/14 1237 Pulse 75 06/14 1237 Resp 18 06/14 1237 All vital signs available at the time of this entry have been reviewed. Condition Stable, Improved Clinical ImpressionClinical ImpressionPrimary Impression: Open woundSecondary Impressions: Cellulitis Disposition DecisionDischarge )( Discharged to Home Yes )( Time 1524 )( Date 06/14/21 Discharge/Care PlanCounseled Regarding Diagnosis , Imaging studies, Prescriptions, Need for follow-up, When to return to ED(Auto) PrescriptionsCurrent Visit Scriptsclindamycin Hc l (Cleocin) 450 MG PO Q8H 5 Days #45 CAPS Mupiroci n Calcium (Bactroban 2%) 1 APPLIC TOPICAL TID Mupirocin Calcium (Bactroban 2%) 1 APPLIC TOPICA L TID #15 GM Apply a small amount to affected area . Prescriptions Reviewed Risks, Benefits, Alternative treatmentPatient Instructions ED Cellulitis, ED Wound Check (Infection)Additional InstructionsFollow-up with practice support specialist if condition worsens or does not improveRefEaston Dooley DPM Departure FormsN[facility] PCP LIST Discharge NoteI have spoken with the patient and/or caregivers. I hav e explained the patient'scondition, diagnoses and treatment plan based on the information availabl e to meat this time. I have answered the patient's and/or caregiver's questions and addressed any concerns. The patient and/or caregivers have as good an understanding of the patient's diagnosis , condition and treatment plan as can beexpected a t this point. The vital signs have been stable. Th e patient's condition is stable and appropriate fo r discharge from the emergency department. The patient will pursue further outpatient evaluatio n with the primary care physician or other designated or consulting physician as outlined i n the discharge instructions. The patient and/or caregivers are agreeable to this planof care and follow-up instructions have been explained in detail. The patient and/or caregivers have received these instructions in written format an d have expressed an understanding of the discharge instructions. The patient and/or caregivers are aware that any significant change in condition o r worsening of symptoms should prompt an immediate return to this or the closest emergency department or a call to 911. Quality MeasuresBP F/U for HTN BP in normal rangeSmoking Cessation Screened, non user at 2039 at 0820RPT #:[id number] OF REPORTEDEmergency department lzlkoe8746-04-54H14:15:00N.[id number] a ilable for patient [id number]:21:12 2021-05-28 11:50:00 [id number]:50:00 [facility] ([facility])EMERGENCY PROVIDER REPORTREPORT#:[id number] REPORT STATUS: SignedDATE:05/28/21 TIME: 1150 PATIENT: MARISSA ODELL UNIT #: [id number]#: [id number] ROOM: BED:AGE: 20 SEX: F PCP PHYS: No Primary or Family PhysicianSERVICE AUTHOR: Ti Hudson APRN * ALL edit s or amendments must be made on the electronic/computer document * HPI-Dental/Mouth Prob Free Text HPI NotesFree Text HPI [id number] female presents for evaluation of suspicion of infection in her mouth. Patient broke her jaw approximately a year ago and had procedure to wireit in place by Dr. Meyer. Never followed up with that doctor. States that a couple of the wires broke and have caused some scratches on the inside of her mouth and she is worried she will develop an infection. Denies an y fever deniesany pain. Patient is alert and oriented, no apparent distress, no visible signsof redness or infection within the mouth GeneralConfirmed Patient YesPatient Type New patientInitial Greet Date/Time 05/28/21 1103 PresentationChief Complaint Mouth painHx Obtaine d From PatientOnset Occurred Sudden, Weeks agoSymptom Duration Waxes and wanesProgression since Onset IntermittentCaused by No trauma by historyQuality PainfulRadiationDoes not radiate. Severity: Onset MildSeverity: Current MildAssociated withDenies: Bleeding, Can't fully open mouth, Chills, Drooling, Earache, Fever, Hoarse voice, Nausea, Shortness of breath, Sore throat, Unable to tolerate P.O.,Vomiting, bloody , Vomiting, non bloody. Associated Other Pt denies other symptomsExacerbated by NothingRelieved by Nothing Review of Systems ROS StatementsAll systems rev neg except as marked. Basic Review o f SystemsBasic ROS EYES: No redness, CV: No chest pain, : No dysuria/frequency, MS: No ext swelling/pain, HEM: No bleeding/bruising, SKIN: No rash, NEURO: No change MS, NEURO: No focal deficit, PSYCH: NL thought content Focused Revie w of SystemsConstitutionalDenies: Chills, Fever, Lethargy. Ears/Nose/ThroatReports: Mouth pain. RespiratoryDenies: Cough, non-productive, Cough, productive, Shortness of breath. GIDenies: Abdominal pain, Diarrhea, Nausea, Vomiting. Past Medical History - AdultStated Complaint POSSIBLE INFECTION TO UPPER ORAL BRACEAllergiesCoded Allergies:No Known Allergies (07/25/19) Home MedicationsActive ScriptsAmoxicillin/Clav K (Amox-Clav 875/125 Mg) 875 MG PO BID Amoxicillin/Clav K (Amox-Clav 875/125 Mg) 875 MG PO BID #10 TAB Prov: 07/02/20 Reported MedicationsAcetaminophen (Tylenol) 650 MG PO Q6H PRN See Instructions Ibuprofen (Motrin) 600 MG P O Q6H PRN BREAKTHROUGH PAIN Pt reports no significant: Past medical history, Past surgical history, Family history, Social historyAlcohol Use Denies EtOH useDrug Use Denies recreational drugsSmoking status: Smoking status for patients 13 years old or older: Never SmokerOther Social History Local residentAmbulatory Status Independent Physical Exam Vital SignsVital SignsFirst Documented: Result Date Time Pulse Ox 99 / 1108 B/P 137/85 / 1108 B/P Mean 102.0 / 1108 Temp 98.4 08/ 1108 Pulse 99 08/ 1108 O2 Delivery Room air / 1225 Resp 18 05/28 1225 Last Documented: Result Date Time Pulse Ox 99 05/28 1225 B/P 133/84 05/28 1225 B/ P Mean 100 05/28 1225 O2 Delivery Room air / 1225 Pulse 87 08/ 1225 Resp 18 05/28 1225 Tem p 98.4 08/ 1108 Review of Vital Signs Reviewed, Vital signs normal Basic Physical ExamBasic PE GEN: Well appearing/NAD, HEAD: Atraumatic/NC, EYES: PERRL, conj clear, RESP: No resp distress, CV: Reg rate rhythm, ABD: Soft/non-tender, EXT: No gross abnormality, SKIN: No rashes, warm/dry, NEURO: alert oriented, NEURO: gross movement NL, PSYCH: NL thought content Focused PEGeneral/Cons t General/Const Awake, Alert, Well appearingMS Hea d Head NormocephalicEyes Eyes PERRLEars/Nose/Throa t Ears/Nose/Throat Atraumatic, Airway patent, Mucous membranes moist, Pharynx NL, No pooling o f secretions, No trismus, No facial swelling, Gums/dentition NLMS Neck Neck Supple, No meningismus, Full range of motion, No adenopathy , No swelling, Non-tender, No massesResp/Chest Respiratory/Chest Breath sounds NL, Breath sound s = bilat, No respiratory distress, No rales, No rhonchi, No wheezing, No stridorCardiovascular Cardiovascular Heart rate NL, Regular rhythm, Heart sounds NL, No murmurs, Peripheral circulation NLNeurologic Neurologic Oriented X3, Speech NL, No motor deficits, No sensory deficit s Interpretation Diagnostics Point of Care TestingPulse Oximetry Pulse Ox % 100 On: Room ai r Interpretation Interpreted by me, Pulse oximetr y normal Time 1150 Re-Evaluation MDM Free Text MDM NotesFree Text MDM NotesPatient given prescription for antibiotics and discharged home with instructionsto follow-up with her plastic surgeon. Referral information provided. Patient happy treatment plan verbalized understanding of instructions Patient Discharge Departure Vital Signs/ConditionVital SignsFirst Documented: Result Date Time Pulse Ox 99 / 1108 B/P 137/85 / 1108 B/P Mean 102.0 / 1108 Temp 98.4 / 1108 Pulse 99 08/ 1108 O2 Delivery Room air 05/28 1225 Resp 18 05/28 1225 Last Documented: Result Date Time Pulse Ox 99 05/28 1225 B/P 133/84 05/28 1225 B/P Mean 100 / 1225 O2 Delivery Room air 05/28 1225 Pulse 87 / 1225 Resp 18 05/28 1225 Temp 98.4 05/28 1108 All vital signs available at the time of this entry have been reviewed. Condition Stable, Improved Clinical ImpressionClinical ImpressionPrimary Impression: Mouth pain Disposition DecisionDischarge )( Discharged to Home Yes )( Time 1150 )( Date 05/28/21 Discharge/Care PlanCounseled Regarding Diagnosis , Prescriptions, Need for follow-up, When to returnto ED(Auto) PrescriptionsCurrent Visit ScriptsAmoxicillin/Clav K (Amox-Clav 875/125 Mg) 875 MG PO Q12H Amoxicillin/Clav K (Amox-Clav 875/125 Mg) 875 MG PO Q12H #20 TABS Junior Zarate MD Departure FormsN[facility]VAL[facility] PCP LISTWORK/SCHOOL EXCUSE VARIABLE Restrictions apply through 05/30/21 Discharge NoteI have spoken with the patient and/or caregivers. I hav e explained the patient'scondition, diagnoses and treatment plan based on the information availabl e to meat this time. I have answered the patient's and/or caregiver's questions and addressed any concerns. The patient and/or caregivers have as good an understanding of the patient's diagnosis , condition and treatment plan as can beexpected a t this point. The vital signs have been stable. Th e patient's condition is stable and appropriate fo r discharge from the emergency department. The patient will pursue further outpatient evaluatio n with the primary care physician or other designated or consulting physician as outlined i n the discharge instructions. The patient and/or caregivers are agreeable to this planof care and follow-up instructions have been explained in detail. The patient and/or caregivers have received these instructions in written format an d have expressed an understanding of the discharge instructions. The patient and/or caregivers are aware that any significant change in condition o r worsening of symptoms should prompt an immediate return to this or the closest emergency department or a call to 911. Quality MeasuresCurrent Medications Not eligible for reviewSmoking Cessation Screened, non userTobacc o Screening/Cessation Denies tobacco use at 1443RPT #:[id number] OF REPORTEDEmeprovidence st. [facility] department [id number]:50:00N.[id number] a ilable for patient [id number]:43:24 2021-05-28 11:50:00 [id number]:50:00 [facility] ([facility] PROVIDER REPORTREPORT#:[id number] REPORT STATUS: SignedDATE:05/28/21 TIME: 1150 PATIENT: MARISSA ODELL UNIT #: [id number]#: [id number] ROOM: BED:AGE: 20 SEX: F PCP PHYS: No Primary or Family PhysicianSERVICE AUTHOR: Ti Hudson APRN * ALL edit s or amendments must be made on the electronic/computer document * Ti Hudson 05/28/21 1150:HPI-Dental/Mouth Prob Free Text HP I NotesFree Text HPI [id number] female presents for evaluation of suspicion of infectio n in her mouth. Patient broke her jaw approximatel y a year ago and had procedure to wireit in place by Dr. Meyer. Never followed up with that doctor. States that a couple of the wires broke and have caused some scratches on the inside of her mouth and she is worried she will develop an infection . Denies any fever deniesany pain. Patient is aler t and oriented, no apparent distress, no visible signsof redness or infection within the mouth GeneralConfirmed Patient YesPatient Type New patientInitial Greet Date/Time 05/28/21 1103 PresentationChief Complaint Mouth painHx Obtaine d From PatientOnset Occurred Sudden, Weeks agoSymptom Duration Waxes and wanesProgression since Onset IntermittentCaused by No trauma by historyQuality PainfulRadiationDoes not radiate. Severity: Onset MildSeverity: Current MildAssociated withDenies: Bleeding, Can't fully open mouth, Chills, Drooling, Earache, Fever, Hoarse voice, Nausea, Shortness of breath, Sore throat, Unable to tolerate P.O.,Vomiting, bloody , Vomiting, non bloody. Associated Other Pt denies other symptomsExacerbated by NothingRelieved by Nothing Review of Systems ROS StatementsAll systems rev neg except as marked. Basic Review o f SystemsBasic ROS EYES: No redness, CV: No chest pain, : No dysuria/frequency, MS: No ext swelling/pain, HEM: No bleeding/bruising, SKIN: No rash, NEURO: No change MS, NEURO: No focal deficit, PSYCH: NL thought content Focused Revie w of SystemsConstitutionalDenies: Chills, Fever, Lethargy. Ears/Nose/ThroatReports: Mouth pain. RespiratoryDenies: Cough, non-productive, Cough, productive, Shortness of breath. GIDenies: Abdominal pain, Diarrhea, Nausea, Vomiting. Past Medical History - AdultStated Complaint POSSIBLE INFECTION TO UPPER ORAL BRACEAllergiesCoded Allergies:No Known Allergies (07/25/19) Home MedicationsActive ScriptsAmoxicillin/Clav K (Amox-Clav 875/125 Mg) 875 MG PO BID Amoxicillin/Clav K (Amox-Clav 875/125 Mg) 875 MG PO BID #10 TAB Prov: 07/02/20 Reported MedicationsAcetaminophen (Tylenol) 650 MG PO Q6H PRN See Instructions Ibuprofen (Motrin) 600 MG P O Q6H PRN BREAKTHROUGH PAIN Pt reports no significant: Past medical history, Past surgical history, Family history, Social historyAlcohol Use Denies EtOH useDrug Use Denies recreational drugsSmoking status: Smoking status for patients 13 years old or older: Never SmokerOther Social History Local residentAmbulatory Status Independent Physical Exam Vital SignsVital SignsFirst Documented: Result Date Time Pulse Ox 99 08/ 1108 B/P 137/85 / 1108 B/P Mean 102.0 / 1108 Temp 36.9 08/06 1108 Pulse 99 08/ 1108 O2 Delivery Room air 05/28 1225 Resp 18 05/28 1225 Last Documented: Result Date Time Pulse Ox 99 / 1225 B/P 133/84 05/28 1225 B/ P Mean 100 / 1225 O2 Delivery Room air / 1225 Pulse 87 08/ 1225 Resp 18 / 1225 Tem p 36.9 08/ 1108 Review of Vital Signs Reviewed, Vital signs normal Basic Physical ExamBasic PE GEN: Well appearing/NAD, HEAD: Atraumatic/NC, EYES: PERRL, conj clear, RESP: No resp distress, CV: Reg rate rhythm, ABD: Soft/non-tender, EXT: No gross abnormality, SKIN: No rashes, warm/dry, NEURO: alert oriented, NEURO: gross movement NL, PSYCH: NL thought content Focused PEGeneral/Cons t General/Const Awake, Alert, Well appearingMS Hea d Head NormocephalicEyes Eyes PERRLEars/Nose/Throa t Ears/Nose/Throat Atraumatic, Airway patent, Mucous membranes moist, Pharynx NL, No pooling o f secretions, No trismus, No facial swelling, Gums/dentition NLMS Neck Neck Supple, No meningismus, Full range of motion, No adenopathy , No swelling, Non-tender, No massesResp/Chest Respiratory/Chest Breath sounds NL, Breath sound s = bilat, No respiratory distress, No rales, No rhonchi, No wheezing, No stridorCardiovascular Cardiovascular Heart rate NL, Regular rhythm, Heart sounds NL, No murmurs, Peripheral circulation NLNeurologic Neurologic Oriented X3 , Speech NL, No motor deficits, No sensory deficit s Interpretation Diagnostics Point of Care TestingPulse Oximetry Pulse Ox % 100 On: Room ai r Interpretation Interpreted by me, Pulse oximetry normal Time 1150 Re-Evaluation MDM Free Text MDM NotesFree Text MDM NotesPatient given prescription for antibiotics and discharged home with instructionsto follow-up with her plastic surgeon. Referral information provided. Patient happy treatment plan verbalized understanding of instructions Patient Discharge Departure Vital Signs/ConditionVital SignsFirst Documented: Result Date Time Pulse Ox 99 08/ 1108 B/P 137/85 08/ 1108 B/P Mean 102.0 08/ 1108 Tem p 36.9 08/06 1108 Pulse 99 08/ 1108 O2 Delivery Room air 08/ 1225 Resp 18 05/28 1225 Last Documented: Result Date Time Pulse Ox 99 / 1225 B/P 133/84 08/ 1225 B/P Mean 100 08/ 1225 O2 Delivery Room air 08/ 1225 Pulse 87 08/ 1225 Resp 18 08/ 1225 Temp 36.9 08/06 1108 All vital signs available at the time of this entry have been reviewed. Condition Stable, Improved Clinical ImpressionClinical ImpressionPrimary Impression: Mouth pain Disposition DecisionDischarge )( Discharged to Home Yes )( Time 1150 )( Date 08/06/21 Discharge/Care PlanCounseled Regarding Diagnosis , Prescriptions, Need for follow-up, When to returnto ED(Auto) PrescriptionsCurrent Visit ScriptsAmoxicillin/Clav K (Amox-Clav 875/125 Mg) 875 MG PO Q12H Amoxicillin/Clav K (Amox-Clav 875/125 Mg) 875 MG PO Q12H #20 TABS Junior Zarate MD Departure FormsN[facility]VAL[facility] PCP LISTWORK/SCHOOL EXCUSE VARIABLE Discharge NoteI have spoken with the patient and/or caregivers. I have explained the patient'scondition, diagnoses and treatment plan based on the information available to meat this time. I have answered the patient's and/or caregiver's questions and addressed any concerns . The patient and/or caregivers have as good an understanding of the patient's diagnosis, condition and treatment plan as can beexpected a t this point. The vital signs have been stable. Th e patient's condition is stable and appropriate fo r discharge from the emergency department. The patient will pursue further outpatient evaluatio n with the primary care physician or other designated or consulting physician as outlined i n the discharge instructions. The patient and/or caregivers are agreeable to this planof care and follow-up instructions have been explained in detail. The patient and/or caregivers have received these instructions in written format an d have expressed an understanding of the discharge instructions. The patient and/or caregivers are aware that any significant change in condition o r worsening of symptoms should prompt an immediate return to this or the closest emergency department or a call to 911. Quality MeasuresCurrent Medications Not eligible for reviewSmoking Cessation Screened, non userTobacc o Screening/Cessation Denies tobacco use David Baird 05/28/21 1449:Patient Discharge Departure Supervising Physician Note MidLv Saw P t LindsayI was available for consultation as needed at all times during the patient's visit in the emergency department. at 1443RPT #:[id number] OF REPORTEDSaint [facility] department [id number]:50:00N.[id number] a ilable for patient [id number]:49:44 2021-05-28 11:50:00 [id number]:50:00 [facility]EM[facility] PROVIDER REPORTREPORT#:[id number] REPORT STATUS: SignedDATE:05/28/21 TIME: 1150 PATIENT: MARISSA ODELL UNIT #: [id number]#: [id number] ROOM: BED:AGE: 20 SEX: F PCP PHYS: No Primary or Family PhysicianSERVICE AUTHOR: Ti Hudson APRN * ALL edits or amendments must be made on the electronic/computer document * Ti Hudson 05/28/21 1150:HPI-Dental/Mouth Prob Free Text HP I NotesFree Text HPI Ftxmy32-oevh-sdm female presents for evaluation of suspicion of infectio n in her mouth. Patient broke her jaw approximatel y a year ago and had procedure to wireit in place by Dr. Meyer. Never followed up with that doctor. States that a couple of the wires broke and have caused some scratches on the inside of her mouth and she is worried she will develop an infection . Denies any fever deniesany pain. Patient is aler t and oriented, no apparent distress, no visible signsof redness or infection within the mouth GeneralConfirmed Patient YesPatient Type New patientInitial Greet Date/Time 05/28/21 1103 PresentationChief Complaint Mouth painHx Obtaine d From PatientOnset Occurred Sudden, Weeks agoSymptom Duration Waxes and wanesProgression since Onset IntermittentCaused by No trauma by historyQuality PainfulRadiationDoes not radiate. Severity: Onset MildSeverity: Current MildAssociated withDenies: Bleeding, Can't fully open mouth, Chills, Drooling, Earache, Fever, Hoarse voice, Nausea, Shortness of breath, Sore throat, Unable to tolerate P.O.,Vomiting, bloody , Vomiting, non bloody. Associated Other Pt denies other symptomsExacerbated by NothingRelieved by Nothing Review of Systems ROS StatementsAll systems rev neg except as marked. Basic Review o f SystemsBasic ROS EYES: No redness, CV: No chest pain, : No dysuria/frequency, MS: No ext swelling/pain, HEM: No bleeding/bruising, SKIN: No rash, NEURO: No change MS, NEURO: No focal deficit, PSYCH: NL thought content Focused Revie w of SystemsConstitutionalDenies: Chills, Fever, Lethargy. Ears/Nose/ThroatReports: Mouth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 antibiotics. Eventualinfectious disease consultation was initiated with Dr. Sanchez on October 17for their recommendations of septicemia, bacteremia, and a CT scan of theabdomen and pelvis was requested. This was completed on October 17, whichshowed a fluid collection anterior to the uterus at that time concerning forpossible hemorrhage, measurement 12 cm x 4 cm. The patien t was continued to bemonitored for the next couple of days for any development of sepsis and fever. The patient remained afebrile, so decision for possible drainage if patientclinically declined. The patient remained very stable. Infectious disease hascleared the patient for discharge wit h conversion over to oral Bactrim for 10days twice a day. The patient has been explicitly explained on multipleoccasions to pump and dump her breast milk. The patient will follow up withOB/EDGE TRIMMER MECHANIC for postoperative care and wound check and no heavy lifting and to keepwound dry, clean and intact. PHYSICAL EXAMINATION: The patient was seen and examined on the day ofdischarge.VITAL SIGNS: Afebrile. Vital signs are stable.LUNGS: Clear to auscultation bilaterally.CARDIOVASCULAR: Regular rate and rhythm. No murmurs, rubs or gallopsappreciated.ABDOMEN: Soft, nontender and nondistended.EXTREMITIES: No clubbing, cyanosis or edema noted.NEUROLOGIC: Intact. No focal deficits. DISCHARGE DIET: Going to be a regular diet. ACTIVITY: Going to be as previously mentioned, minimal heavy lifting. MEDICATIONS: Please see medication reconciliation for full details. The PATIENT NAME MARISSA ODELL patient was instructed t o utilize Tylenol or NSAIDs only for pain at this time. Time spent on discharge greater than 30 minutes. Dictated By: Nimesh Kovacs MD WT: DS:NEDWAR/MELODY/DIGNADD: 10/20/2019 09:17:24DT: 10/20/2019 12:20:02Conf#: [id number]/DID#: [id number] Authenticated by Nimesh Kovacs MD On 10/23/2019 02:48:37 PM at 1449 PATIENT NAME MARISSA ODELL ebeyaqu3822-45-85C61:20:00N.[id number] a ilable for patient hyyvYLPKXAHHMJMSEP5872-98-47R08:49:21 2019-10-19 12:45:00 [id number]:45:579420-[address] [address] PATIENT NAME: MARISSA ODELL ADMIT DATE: 10/09/19ACCOUNT NO : [id number] ROOM NO: N6025 AGE: 18 REPORT TYPE: PROGRESS NOTE SEX: F ADMITTING PHYSICIAN:Grady Fuentes MD ATTENDING PHYSICIAN:Grady Fuentes MD DATE: patient was admitted to the hospital for delivery. She did have a cesareansection, starte d having fevers. A CT revealed a large area of fluid collectionanterior to the uterus. She was started on IV antibiotics. Infectious diseasehas been consulted. The patient has been afebrile fo r about 36 hours now. First blood culture revealed Enterobacter aeruginosa. Second set of bloodcultures done on the was negative. No growth to date. The patient isdoing much better now. We will continue the antibiotics. There is no need atthis time for interventional radiologist for draining of the fluid collectionsince the patient is afebrile, and we will discharge home when cleared by . Dictated By: Grady Fuentes MD WT: PN[facility]/XYDNI/NTSDD: 10/19/2019 12:45:56DT: 10/19/2019 14:13:37Conf#: [id number]/DID#: [id number] Authenticated by Grady Fuentes MD On 11/06/2019 08:47:44 PM at 2048 PATIENT NAME MARISSA ODELL Fiae0997-92-99E59:13:00N.[id number] a ble for patient lfuvWWVMMSPPMKZGJY7307-11-22L04:48:17 2019-10-19 12:37:00 [id number]:37:00 [facility].Note-VancomycinREPORT#:[id number] REPORT STATUS: SignedDATE:10/19/19 TIME: 1237 PATIENT: MARISSA ODELL UNIT #: [id number]#: [id number] ROOM: [facility]25 BED: 1DOB: [birth year] AGE: 18 SEX: F ATTEND: Grady Fuentes MDA AUTHOR: Reta Coats [facility] * ALL edits or amendments must be made on the electronic/computer document * Vancomycin VancomycinMedication Therapy:Vancomycin Goal trough: 15-20 mcg/mlIndication for treatment:BLOODSTREAM INFECTIONCurrent therapy:VANCOMYCIN 750 MG IV R1ABjlovh: Actual weight (kg): 61VS and I/O:Vital Signs Date Temp Pulse Resp B/P B/P Mean Pulse Ox FiO2 10/16-09/23 8 36.7-39.6 82-124 - 97-135/59-85 73.0-98.4 96-100 72 hours ending at 0700 10/16 1900 10/17 0710/17 19010/18 0710/18 1900 0700Intake 120 100TotalOutputTotalBalance 120 10 0 Intake, 120 100OralNumber 1 1 1Voids 72 Hour I O Total 10/17 0700 10/18 0700 10/19 0700 Intake Total 220 Output Total Balance 220 Labs:Laboratory Tests: 10/19 1032 Toxicology Vancomycin Trough (10.0 - 20.0 ug/ml) 5.7 L Laboratory Test : 10/17 10/17 10/17 10/18 10/19 0443 1817 2227 0454 1032 Chemistry BUN (6 - 20 mg/dl) 5 L < 5 L Creatinine (0.44 - 1.03 mg/dL) 0.51 0.50 0.50 Hematology WBC (3.2 - 11.5 x10 3/uL) 11.9 H 12.1 H 12.2 H 11.4 Microbiology:10/17 1046 BLOOD: Blood Culture - RES10/17 1035 BLOOD: Blood Culture - RES Treatment plan: change regimenRegimen:CHANGE TO VANCOMYCIN 1 GM IV Q6H - NEXT DOSE DUE 10/19 1700Follow up: Lab:DRAW VANCOMYCIN TROUGH LEVEL ON 10/20 AT 1000 at 1240 RPT #:[id number] OF REPORTPRProgress Ovrk2423-48-38Q99:37:00N.[id number] taryn able for patient mdenPVSWZREJJVDWSR1861-52-19D40:41:04 2019-10-18 13:41:00 [id number]:41:759912-[address] [address] PATIENT NAME: MARISSA ODELL ADMIT DATE: 10/09/19ACCOUNT NO: [id number] ROOM NO: N.6025 AGE: 18 REPORT TYPE: PROGRESS NOTE SEX: F ADMITTING PHYSICIAN:Grady Fuentes MD ATTENDING PHYSICIAN:Grady Fuentes MD DATE: SUBJECTIVE: She was admitted to the hospital for repeat section. Shestarted spiking fevers. She was transferred to the floor, [facility]. The patientwas done on 10/13/2019, so this is postop day #5. The patient had a CT of theabdomen and pelvis that shows up an increase in fluid collection compared to theprevious CT anterior to the uterus, possibly a hemorrhagic fluid. This is 12 x4 cm in size. The patient als o had a blood culture that shows Enterobacteraerogenes on 10/14/2019 however, the recent blood culture done on the isnegative to date, no growth. Her white count is 11,000, hematocrit 24%, andstable. Prior to the operation, her hematocrit is 32%. OBJECTIVE:KAROL L SIGNS: Temperature, she has been febrile since yesterday for about 24hours. PLAN: To continue the antibiotics. If she continues to spike fevers, she willrequire to have drainage of the fluid. Dictated By: Grady Fuentes MD WT: PN:[facility]/XYDNI/NTSDD: 10/18/2019 13:41:40DT: 10/18/2019 14:15:39Conf#: [id number]/DID#: [id number] Authenticated by Grady Fuentes MD On 11/06/2019 08:47:43 PM at 2047 PATIENT NAME MARISSA DOELL Kixv2875-03-13C72:15:00N.[id number] a ble for patient fensXGHIKNMSQTHBGG9386-20-34S59:48:17 2019-10-17 15:02:00 [id number]:02:977713-7 [address] [address] PATIENT NAME: MARISSA ODELL ADMIT DATE: 10/09/19ACCOUNT NO: [id number] ROOM NO: N.6025 AGE: 18 REPORT TYPE: CONSULTATION SEX: F ADMITTING PHYSICIAN:Grady Fuentes MD ATTENDING PHYSICIAN:Grady Fuentes MD CONSULTATION DATE: 10/17/2019 CONSULTING PHYSICIAN: Kely Reid MD REFERRING PHYSICIAN: Jhoana Nuñez MD REASON FOR CONSULTATION: Sepsis, bacteremia. HISTORY OF PRESENT ILLNESS: Ms. Odell is a 18-year-old female who wasadmitted to the hospital on 10/09/2019 with reported premature rupture ofmembranes. The patient underwent on 10/13/2019. She was noted tohave normal temperatures at first, but then started to have a fever since thenight of her surgery; it is currently 103. The patient has been tachycardic. Over time, she has received clindamycin, metronidazole, ampicillin, gentamicin. Currently , on Zosyn. We are asked to assess her and determine her antibioticmanagement. PAST MEDICAL HISTORY: None. PAST SURGICAL HISTORY: None. ALLERGIES: NO KNOWN DRUG ALLERGIES. FAMILY HISTORY: Noncontributory to the present illness. REVIEW OF SYSTEMS: As per HPI. Other than that, negative to 14-point review ofsystems. LABORATOR Y DATA AND DIAGNOSTIC STUDIES: Sodium 138, potassium 3.6, gkkreldo402, bicarbonate 26, glucose 87, BUN 5, creatinine is 0.51. Lactic acid 2.0. WBC is 11.9, it was as high as 25.4 on 10/14/2019; hemoglobin 7.2, and plateletcount 350,000. Bands 20%. Urinalysis shows too numerou s wbc's to count, toonumerous rbc's. Blood culture s are positive for Enterobacter. This is from10/14/2019. Repeat blood culture from 10/15/2019 showing gram-negative, still. Initial CT of the abdomen and pelvis without contrast showed suprapubic softtissue air and free peritoneal air as well as stranding of the anterior uteruscompatible with recent postsurgical changes; right mild hydronephrosis. PHYSICAL EXAMINATION:VITAL SIGNS: Temperature is 103.3, heart rate is 124, respiratory rate 20, andblood pressure 115/72.GENERAL: The patient is alert, in no distress. PATIENT NAME MARISSA ODELL HEENT: Pupils are reacting to light and accommodation. No oral lesion.NECK: Supple. No bruit.LUNGS: Clear to auscultation.CARDIOVASCULAR: Regular rate and rhythm, tachycardia. I cannot auscultat e anymurmurs.ABDOMEN: Bowel sounds are present. It is slightly distended. There is atransversal surgical site that is clean on approach with the sterile strip. Nosuprapubic emphysema. No erythema.GENITOURINARY: External genitalia appeared to be normal without any foul odoror discharge.BREASTS: Both breasts showed no erythema. They are not engorged. Nontender.EXTREMITIES: Peripheral IV, no signs o f phlebitis.NEUROLOGIC: She is alert and oriented x3. There is no focal deficit. ASSESSMENT:1. Enterobacter bacteremia.2. Sepsis secondary to #1.3. History of premature rupture of membranes.4. Status post on 10/13/2019 . PLAN: The patient is on appropriate coverage wit h Zosyn, but she is showing anincrease in bands an d is persistently febrile. We will get a CT of the abdomenand pelvis with contrast to assess for collections. Based on the MIRA's,meropenem seems to be other choice. We will modify the therapy t o meropenem andevaluate further. Thanks, Dr. Nuñez for allowing us to participate in the care of your patient. We will follow her along with you. Dictated By: Kely Reid MD WT: CON:NEDWAR/MONICA.Ayesha/NTSDD: 10/17/2019 15:02:39DT: 10/17/2019 19:43:02Conf#: [id number]/DID#: [id number] Authenticated by Becka Reid MD On 11/07/2019 09:24:24 A M at 0924 PATIENT NAME MARISSA ODELL :43:00N.H I [id number] for patient hfgaRCOXBYWSIJROGW6776-77-63D45:25:11 2019-10-14 17:30:00 [id number]:30:275085-9 079 [facility] [address] [place] [address] PATIENT NAME: MARISSA ODELL ADMIT DATE: 10/09/19ACCOUNT NO: [id number] ROOM NO: N.0250 AGE: 18 REPORT TYPE: ELECTROCARDIOGRA M SEX: F ADMITTING PHYSICIAN:Grady Fuentes MD ATTENDING PHYSICIAN:Grady Fuentes MD Order:[id number] Reason : Resting 12-lead ECG Test Date/Time Stamp:MonOct 14 2019 17:30:31Blood Pressure : / mmHGVent. Rate : 131 BPM Atrial Rate : 000 BPM P-R Int : 143 ms QRS Dur : 081 ms QT Int : 274 ms P-R-T Axes : 04 8 049 008 degrees QTc Int : 351 ms SINUS TACHYCARDIAABNORMAL RHYTHM ECGReviewed by Confirmed by MAHSA BURNETTE MD ([id number]) on 10/16/2019 8:28:26 PM Referred By: Grady Fuentes Confirmed by:MAHSA Mcnamara at 2027 PATIENT NAME MARISSA ODELL .[id number] AVAvailable for patient qmpnEHFRVLVLDYIYQG8580-57-11C72:28:52 2019-10-13 08:26:00 [id number]:26:834490-5 [address] [address] PATIENT NAME: MARISSA ODELL ADMIT DATE: 10/09/19ACCOUNT NO: [id number] ROOM NO: N.1211 AGE: 18 REPORT TYPE: OPERATIVE REPORT SEX: F ADMITTING PHYSICIAN:Grady Fuentes MD ATTENDING PHYSICIAN:Grady Fuentes MD OPERATION DATE: PREOPERATIVE DIAGNOSES: She is a 18-year-old, 2, para 0-0-1-0 at 26weeks and 5 days with premature rupture of membranes and lower segment fibroidabout 10 cm with a suspected chorio, tachycardia, repeated variabledecelerations, category 3 tracing and variability was low. POSTOPERATIVE DIAGNOSES: Yolanda raines is a 18-year-old, 2, para 0-0-1-0 at 26weeks and 5 days with premature rupture of membranes and lower segment fibroidabout 10 cm with a suspected chorio, tachycardia, repeated variabledecelerations, category 3 tracing and variability was low and degenerating lowersegment fibroid. SURGEON: Hans Hernandez DO CAD MANAGER: None. PROCEDURE: Primary classical incision, delivery. ESTIMATED BLOOD LOSS: 500 mL. ANESTHESIA: Spinal anesthesia was attempted, was converted to generalanesthesia. FINDINGS: Transverse lie female fetus, Apgars of 7 and 8, weight was 1 pound,10 ounces, 735 grams . PROCEDURE IN DETAIL: The patient was taken to [facility] operating room, anesthesianoted to be adequate, she was prepped and draped in normal sterile fashion. APfannenstiel skin incision was made, carried down to underlying fascia where thefasci a was incised and extended laterally with Farrell scissors. Rectus musclesharply dissected superiorly, inferiorly and extended laterally. Peritoneum wasentered and extended laterally. Bladder blade was inserted. Bladder flap wascreated with Metzenbaum scissors and a pair o f smooth pickups. Fibroid wasnoted at the lower segment. The classical incision was made and the baby wasthen delivered. Delayed cord clamping carried out and placenta deliveredspontaneously intact and the cord was clamped and cut. [facility] The uterus was exteriorized. The lower segment fibroid wasnoted to be protruding and degenerative in nature and lower transverse incisionwas made to remove and transect the fibroid in its entirety. A suture of 0Monocryl was used to reapproximate the uterine incision in a running lockedfashion. The second suture of 0 Monocryl was used to reapproximate the PATIENT NAME MARISSA ODELL classical incision in layers and the serosa was reapproximated with Monocrylsuture and then an imbricating stitch wa s placed along the lower segment wherethe fibroid was. Posterior aspect of the uterus was then irrigated, cleared ofall clot and debris and the uterus was returned to the abdomen. The gutterswere cleared of all clot and debris. The uterine incision was reinspected andnoted to be hemostatic. Fibrillar was placed over the incision sites on theuterus along with Interceed . The sponge count was noted to be correct at thispoint. A 2-0 Vicryl was used to reapproximat e the peritoneum and rectus muscle. The fascia was then reapproximated with 0 Vicryl suture in continuous fashion. Adipose layer was reapproximated with 2-0 plain suture and the ski n wasreapproximated with 4-0 Vicryl suture, subcuticular stitch placed. All sponge,needles, laps were correct x3. The patient tolerated the procedure well andtaken to PACU in stable condition. Dictated By: Hans Hernandez DO WT: OP:N.TIM/WOOD/NTSDD: 10/13/2019 08:26:21DT: 10/13/2019 09:12:43Conf#: [id number]/DID#: [id number] Authenticated by Hans Hernandez DO On 10/13/2019 10:45:11 AM at 1045 PATIENT NAME MARISSA ODELL zjdnct0279-90-24N06:12:00N.[id number] i lable for patient vuoaAGEGOSSBIIUSAV1207-49-55K23:45:50 2019-10-09 07:24:00 [id number]:24:00 [facility] ([facility])Consultatio n Note - BriefREPORT#:[id number] REPORT STATUS: SignedDATE:10/09/19 TIME: 723 PATIENT: MARISSA ODELL UNIT #: [id number]#: [id number] ROOM: [facility] BED: 1DOB: [birth year] AGE: 18 SEX: F ATTEND: Grady Fuentes MDADM AUTHOR: Irina Bain MD * ALL edits or amendments must be made on the electronic/computer document * History of Presen t Illness HPIHistory of present illness: [facility] Name: Marissa Odell Date/Time: 10/09/2019 06:25 Date/Time Note Written: 10/09/2019 06:58:3 6 Requested By:Stephany Birch Place of Service: Obstetrical Unit Maternal History Mom's Age:20Blood Type: O Pos P: 0 RPR/Serology: Non-Reactive HIV:Negative Rubella:Immune GBS:Unknown HBsAg:Negative EDC - OB:01/18/2020 Care:Yes Mom's MR#: [id number] Mom's First Name: Marissa Mom's Last Name: Alysia Family History Non Contributory Complications during , Labor or Delivery:Yes Name Comment Uterine Fibroids Bipolar Disorder Premature onset of labor Drug abuse Maternal Steroids: Yes Most Recent Dose: Date:10/09/2019 Time:05:42 Next Recent Dose: Date: 10/10/2019 Time:05:42 Medications During or Labor:Yes Name Comment Penicillin Betamethasone vitamins Magnesium Sulfate Comment Mother presented today with backpain, vaginal discharge and pink tinged urine. Matenal history of bipolar diorder (not on any meds), uterine fiborid 10cm, genital herpes (4 years ago, treatedwith valtrex, no active lesions) and marijuana use (stopped using after she found out she is in june). Limited care. Had only 1 visit. US: EFW 1lb 13oz. KENDRA 9. Present Plan Management of pregnanc y and delivery per OB expertise. Agree with steroi d course. Comment Discussed complications in detai l with mother related to prematurity, the risk of delivery complications and neurodevelopmental impairment along with mortality and morbidity. Explained to mother those babies born around 25 weeks of gestation are extremely low birthweight and usually need extensive resuscitation immediately after including help with breathing (through breathing tube and breathing machine). Babies will also need umbilical lines (for medications and nutrition). Complications related to prematurity including infection, feeding problems, intraventricular hemorrhage, periventricular leukomalacia, necrotizing enterocolitis, retinopathy of prematurity and chronic lung disease were also discussed. Mother was also informed about different routine investigations which we use to monitor for these complications including blood work, head ultrasound, chest and abdominal x-ray , eye exam (performed by the radiology equipment servicer). Other potential problems include feeding difficulty, infections, and maintaining temperature after . Long-term outcomes were also discussed which can impact Physical development,learning, and communicating skills. Some long-term disabilities caused by premature can include behavior problems including ADHD and anxiety, neurological disorders like cerebral palsy. Statistics were providedusing NICHD prematurity calculator. Importance of breast milk for extremely premature infants was also discussed.Encouraged mother to initiate pumping for the baby even if she does not plan t o breastfeed in future. Also informed mother outcomes improve significantly with advancing gestational age. Mother asked multiple questions which were all answered in detail. Recommendations Neonatology will be present for further questions and at delivery if < 36wks or ill appearing infant. The total length of time for this encounter was 60 minutes. Counseling and/or coordination of care dominated more than fifty percent of the time. Irina Bain MD History - Adult longitudinalAllergies:Coded Allergies:No Known Allergies (07/25/19) at 0725 [facility] #:[id number] OF REPORTSKYwxcgatcjvre2832-81-85V23:24:00N.PDOC 2 [id number] for patient bhcaPFDHGNYNVJLPOV8648-39-06X87:25:30 2019-09-04 14:40:00 ZUutiubgsnz359305521234-61-99G99:40:00 [facility] ([facility])EMERGENCY PROVIDER REPORTREPORT#:[id number] REPORT STATUS: SignedDATE:09/04/19 TIME: 1440 PATIENT: MARISSA ODELL UNIT #: [id number]#: [id number] ROOM: BED:AGE: 18 SEX: F PCP PHYS: No Primary or Family PhysicianSERVICE AUTHOR: Osmany Luna Jr., MD * ALL edit s or amendments must be made on the electronic/computer document * HPI- Female GeneralConfirmed Patient YesPatient Type New patientInitial Greet Date/Time 09/04/19 1424 PresentationChief Complaint Abdominal painHx Obtained From Patient)( Sudden in Onset? NoOnset Occurred Days ago (4)Symptom Duration Since onsetProgression since Onset Intermittent, Gradually worseningContext of Onset , 2n d trimesterCaused by No trauma by historyLocation Abdomen lowerQuality Aching, PainfulSeverity: Current ModerateAssociated withReports: Nausea. Denies: Chills, Fever, Vomiting. Associated Othe r Headache, Back pain ContextPregnancy/Sexual Hx 1 Free Text HPI NotesFree Text HPI Notes18 y/o F G1 currently 20 weeks , with no significant PMHx, presents to the ED for evaluation of lower abdominal pain x 5 days. Pt reports pain is intermittent and has been gradually worsening since onset. She states that she wakes up every 30-40 minutes due to the pain . Notes associated back pain, as well as, nausea that began yesterday and a headache that started today. Denies any other complaints including vaginal bleeding/discharge, vomiting, dysuria anddizziness. Denies trauma or injury. She also notes she has a fibroid; states that she had an US 3 weeks ago and was told it was 10 cm. Portions of this section were scribed by Joann Jones on 09/04/19 at 1606 Review of Systems ROS StatementsAll systems rev neg except as marked. Focused Review of SystemsConstitutionalDenies: Chills, Fever, Lethargy. Ears/Nose/ThroatDenies: Nasal congestion, Nose bleeding. GIReports: Abdominal pain, Nausea. Denies: Diarrhea, Vomiting. FemaleReports: . Denies: Dysuria, Flank pain, Vaginal bleeding - abnl, Vaginal discharge . MusculoskeletalReports: Back pain. Denies: Extremity pain, Extremity swelling, Neck pain. SkinDenies: Abrasion, Abscess, Laceration, Rash. NeurologicDenies: Dizziness, Headache, Numbness, Seizure, Shaking. Additional Review of SystemsEyesDenies: Eye pain bilat, Redness bilat . RespiratoryDenies: Cough, non-productive, Cough, productive, Shortness of breath, Wheezing. CardiovascularDenies: Chest pain, Edema, Palpitations. Portions of this section were scribed by Joann Jones on 09/04/19 at 1443 Past Medical History - AdultStated Complain t 20WKS : LOWER ABDPAIN,HEADACHE,NAUSEAAllergiesCoded Allergies:No Known Allergies (07/25/19) Pt reports no significant: Past medical history, Past surgical history, Family historySmoking status for patients 13 years old or older: Never SmokerOther Social History Local resident Portions of this section were scribed by Joann Jones on 09/04/19 at 1443 Physical Exam Vital SignsVital SignsFirst Documented: Result Date Time Pulse Ox 99 09/04 1428 B/P 119/66 09/04 1428 B/P Mean 83 09/04 1428 O2 Delivery Room air 09/04 1428 Temp 36.8 09/04 1428 Pulse 106 09/04 1428 Resp 16 09/04 1428 Last Documented: Result Date Time Pulse Ox 99 09/04 1428 B/P 119/66 09/04 1428 B/P Mean 83 09/04 142 8 O2 Delivery Room air 09/04 1428 Temp 36.8 09/04 1428 Pulse 106 09/04 1428 Resp 16 09/04 1428 Review of Vital Signs Reviewed Focused PEGeneral/Const General/Const Awake, Alert, No acute distressResp/Chest Respiratory/Chest Breat h sounds NL, Breath sounds = bilat, No respiratory distress, No rales, No rhonchi, No wheezingCardiovascular Cardiovascular Heart rate NL, Regular rhythm, Heart sounds NL, No gallop, No murmurs, No rubs, Cap refill not delayed, Peripheral circulation NLAbdomen/GI Abdomen/GI Soft, No guarding, No rebound, No distentionMS Back Back Inspection NL, Full range of motionSki n Skin Warm, Dry, IntactGenitourinary General Exam deferred Additional PEMS Head Head Atraumatic, NormocephalicEyes Eyes Atraumatic, PERRL, EOMIEars/Nose/Throat Ears/Nose/Throat Atraumatic, Airway patent, Mucous membranes moistMS Neck Neck Atraumatic, Supple, No meningismus, Full range of motionNeurologic Neurologic Oriented X3, Speech NL, No motor deficits, No sensory deficits, CNII - XII intact Portions of this section were scribed by Joann Jones on 09/04/19 at 1606 Interpretatio n Diagnostics Lab Results InterpretationResultsLaboratory Tests: 09/04 09/04 1426 1456 Urines Urine Color (YELLOW) Yellow Urine Appearance (CLEAR) Clear Urine pH (4.5 - 8.5) 6.5 Ur Specific [place] (1.000 - 1.030) 1.015 Urine Protein (NEGATIVE) NEGATIVE Urine Glucose (UA) (NEGATIVE MG/AL) NEGATIVE Urine Ketones (NEGATIVE MG/DL) 80 (3+) Urine Blood (NEGATIVE) NEGATIVE Urine Nitrite (NEGATIVE) NEGATIVE Urine Bilirubin (NEGATIVE) NEGATIVE Urine Urobilinogen (<=1.0 EU/dL) 0.2 Ur Leukocyte Esterase (NEGATIVE) NEGATIVE Urine HCG , Qual (NEGATIVE) POSITIVE Lab StatementLaboratory studies reviewed and considered in the medical decision-making. Point of Care TestingPulse Oximetry Pulse Ox % 99 On: Room air Interpretation Interpreted by nj, Pulse oximetry normal Time 1428 Portions of this section were scribed by Joann Jones on 09/04/19 at 1606 Re-Evaluation MDM Re-Evaluation/ProgressRe-Evaluation/Progress Text/Dict NotePt is in NAD. She was [facility] at [facility] one [facility] ago with normal workup.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
[2023-09-13 15:02] LABS: Absolute Lymphocytes (CBC) 2.3 K/uL (0.7-4.9); Hematocrit 43.4 % (36.0-45.0); Lymphocytes % 19.5 % (15.3-44.8); MCV 93.3 fL (80-100); MPV 8.2 fL (7.6-11.3); Platelets 400 thou/uL (152-406); RBC Red Blood Cell Count 4.65 M/uL (3.86-4.86)
[2023-09-13 15:17] LABS: Specific Gravity 1.007 (1.005-1.030); Urine Bacteria <20 /HPF (<20); Urine Bilirubin NEGATIVE (Negative); Urine Blood Negative (Negative); Urine Clarity Turbid (Clear); Urine Color Light-Yellow (Yellow); Urine Glucose NEGATIVE (Negative); Urine Protein NEGATIVE (Negative); Urine RBC <5 /HPF (None Seen); Urine Urobilinogen Normal (Normal)
[2023-09-13 15:19] LABS: Specific Gravity 1.007 (1.005-1.030)
[2023-09-13 15:34] LABS: Albumin 4.3 g/dL (3.4-5.0); Bilirubin Total 0.5 mg/dL (0.2-1.0); Potassium 3.5 mEq/L (3.5-5.1); Protein, Total 8.6 g/dL (6.4-8.2)
[2023-09-13] MEDS ORDERED: ONDANSETRON 4 MG/2 ML VIAL ONE (15:40)
[2023-09-13] MEDS ORDERED: NA CHLORIDE 0.9% 1,000 ML ONE ×3 (15:41→20:43)
--- NOTE | 2023-09-13 17:03 | RAD REPORT ---
EXAM DESCRIPTION: CT - Abdomen Pelvis W Contrast - 09/13/2023 3:46 pm CLINICAL HISTORY: Abdominal pain COMPARISON: none. TECHNIQUE: Computed axial tomography of the abdomen pelvis was obtained. 100 cc Isovue-300 was admin istered intravenously. Oral contrast was not requested which limits evaluation of bowel and appendix All CT scans are performed using dose optimization technique as appropriate and may include automated exposure control or mA/KV adjustment according to patient size. FINDINGS: The liver, spleen, pancreas, adrenal and kidneys appear unremarkable. Several gallstones. Gallbladder wall appears mildly thickened There is no evidence of diverticulitis. 4.1 centimeter right ovarian cyst. Cystic and tubular structures left adnexa Small amount of free fluid IMPRESSION: Cholelithiasis. Mild gallbladder wall thickening may indicate cholecystitis 4.1 centimeter right ovarian cyst Cystic and tubular structures left adnexum may represent a combination of ovarian cyst and hydrosalpi nx. Pelvic ultrasound recommended
--- NOTE | 2023-09-13 17:34 | RAD REPORT ---
EXAM DESCRIPTION: US - Abdomen Exam Limited - 09/13/2023 5:26 pm CLINICAL HISTORY: Abdominal pain. COMPARISON: None. FINDINGS: Multiple gallstones. Gallbladder wall is mildly thickened The biliary tree is normal caliber. IMPRESSION: Cholelithiasis Mild gallbladder wall thickening may indicate cholecystitis
--- NOTE | 2023-09-13 18:30 | RAD REPORT ---
EXAM DESCRIPTION: US - Transvaginal Study Probe - 09/13/2023 6:22 pm CLINICAL HISTORY: cyst, fallopian tube eval Pelvic pain. COMPARISON: Abdomen Pelvis W Contrast dated 09/13/2023 FINDINGS: The uterus is normal in size, shape and echotexture. The uterus measures 7.5 x 5.2 x 3.9 c m. The endometrial stripe measures 11 mm, normal. Both ovaries are normal in size, shape and echotexture. The right ovary measures 4.5 x 4.4 x 3.4 cm. The left ovary measures 3.2 x 2.1 x 2.0 cm. 3.6 x 3.3 x 3.8 cm complex right ovarian cystic lesion has the appearance of a hemorrhagic cyst or endometrioma. Anechoic tubular structure left adnexa is l ikely mild hydrosalpinx. Normal Doppler blood flow was demonstrated to both ovaries. No significant pelvic ascites. IMPRESSION: 3.8 cm hemorrhagic cyst or endometrioma right ovary. Mild left hydrosalpinx.
--- NOTE | 2023-09-13 18:49 | EDPHYS ---
Physician Documentation [facility] Name: Marissa Hatfield Age: 22 yrs Sex: Female : 2000 Arrival Date: 09/13/2023 Time: 13:48 Bed 12 Private MD: ED Physician Anselmo Gordon HPI: 09/13 14:29 This 22 yrs old Female presents to ER via Ambulatory with complaints of sb4 Abdominal Pain. 14:29 The patient presents with abdominal pain that is diffuse. Onset: The symptoms/episode sb4 began/occurred 2 day(s) ago. The symptoms do not radiate. Associated signs and symptoms: Pertinent positives: nausea and vomiting, Pertinent negatives: diarrhea, dysuria, fever. The symptoms are described as crampy. The patient has not experienced similar symptoms in the past. The patient has not recently seen a physician. worsening abd pain and n/v x 2 days, menstrual cycle is late, not on any control. Historical: - Allergies: 14:27 No Known Allergies; hb - Home Meds: 14:27 None [Active]; hb - PMHx: 14:27 None; hb - PSHx: 14:27 None; hb - Immunization history:: Adult Immunizations up to date. - Social history:: Smoking status: Patient denies any tobacco usage or history of. ROS: 14:29 Constitutional: Negative for fever, chills, and weight loss, sb4 14:29 Abdomen/GI: Positive for abdominal pain, nausea and vomiting, 14:29 : Positive for missed period, 14:29 All other systems are negative, Exam: 14:29 Constitutional: This is a well developed, well nourished patient who is awake, alert, sb4 and in no acute distress. Head/Face: Normocephalic, atraumatic. Eyes: Extra-ocular motions intact. Periorbital areas with no swelling, redness, or edema. ENT: Mucous membranes moist. Cardiovascular: Regular rate and rhythm with a normal S1 and S2. Respiratory: Lungs have equal breath sounds bilaterally, clear to auscultation and percussion. No rales, rhonchi or wheezes noted. No increased work of breathing, no retractions or nasal flaring. Abdomen/GI: Soft, non-tender, no distension. Skin: Warm, dry with normal turgor. Normal color with no rashes, no lesions, and no evidence of cellulitis. MS/ Extremity: Pulses equal, no cyanosis. Neurovascular intact. Full, normal range of motion. Neuro: Awake and alert, GCS 15, oriented to person, place, time, and situation. Motor strength 5/5 in all extremities. Sensory grossly intact. Vital Signs: 14:27 BP 132 / 86; Pulse 82; Resp 16; Temp 98.6(TE); Pulse Ox 100% on R/A; Weight 61.69 kg; hb Height 5 ft. 0 in. ; Pain 5/10; 15:30 BP 121 / 80; Pulse 74; Resp 16; Pulse Ox 99% on R/A; tl4 16:20 BP 118 / 92; Pulse 81; Resp 18; Pulse Ox 99% on R/A; tl4 17:08 BP 106 / 68; Pulse 74; Resp 16; Pulse Ox 100% on R/A; Pain 0/10; tl4 20:24 BP 105 / 71; Pulse 83; Resp 16; Pulse Ox 97% on R/A; Pain 2/10; tl4 14:27 Body Mass Index 26.56 (61.69 kg, 152.4 cm) hb 14:27 Pain Scale: Adult hb 17:08 Pain Scale: Adult tl4 20:24 Pain Scale: Adult tl4 MDM: 13:58 Patient medically screened. sb4 14:29 Differential diagnosis: Cholelithiasis, Ectopic , non-specific abd pain, sb4 urinary tract infection, gastroenteritis, . 18:47 Data reviewed: vital signs, nurses notes, lab test result(s), radiologic studies, I sb4 have discussed the patient's presentation/case with the attending Emergency Department Physician; and as a result, I will admit patient. Consideration of Admission/Observation Patient was admitted/placed on observation. Management of patient was discussed with the following: Hospitalist: Dr. Luu. Director Digital Strategy: general surgery, Dr. Dsouza, will take to OR at 8am tomorrow. Counseling: I had a detailed discussion with the patient and/or guardian regarding the historical points, exam findings, and any diagnostic results supporting the discharge/admit diagnosis, lab results, radiology results, the need for further work-up and treatment in the hospital. 09/13 14:28 Order name: UAM; Complete Time: 15:17 sb4 09/13 14:28 Order name: Test, Urine; Complete Time: 15:21 sb4 09/13 14:29 Order name: CBC with Diff; Complete Time: 15:09 sb4 09/13 14:29 Order name: CMP; Complete Time: 15:48 sb4 09/13 14:29 Order name: Lipase; Complete Time: 15:48 sb4 09/13 18:38 Order name: Blood Culture Adult (2) sb4 09/13 18:38 Order name: Lactate w/ 2H reflex if indic.; Complete Time: 19:40 sb4 09/13 19:39 Order name: Urinalysis w/ reflexes EDMS 09/13 19:39 Order name: Basic Metabolic Panel EDMS 09/13 19:39 Order name: Basic Metabolic Panel EDMS 09/13 19:39 Order name: CBC with Automated Diff EDMS 09/13 19:39 Order name: CBC with Automated Diff EDMS 09/13 19:39 Order name: Magnesium EDMS 09/13 19:39 Order name: Magnesium EDMS 09/13 19:39 Order name: Phosphorus EDMS 09/13 19:39 Order name: Phosphorus EDMS 09/13 15:24 Order name: CT Abd/Pelvis - IV Contrast Only; Complete Time: 17:05 sb4 09/13 17:08 Order name: US Abdomen Limited; Complete Time: 17:35 sb4 09/13 17:42 Order name: Transvaginal Study (probe); Complete Time: 18:31 sb4 09/13 19:36 Order name: CONS Physician Consult EDMS 09/13 14:29 Order name: IV Saline Lock; Complete Time: 14:57 sb4 09/13 14:29 Order name: Labs collected and sent; Complete Time: 14:57 sb4 Administered Medications: 15:32 Drug: NS 0.9% IV 1000 ml IV at 1 bolus Per protocol; 1000 mL bolus Route: IV; Rate: 1 tl4 bolus; Site: right antecubital; Delivery: Primary tubing; 17:30 Follow up: Response: No adverse reaction; IV Status: Completed infusion tl4 15:32 Drug: Ondansetron IVP 4 mg IVP once; over 2 minutes Route: IVP; Infused Over: 2 mins; tl4 Site: right antecubital; 17:47 Follow up: Response: Nausea is decreased tl4 19:29 Drug: Piperacillin-Tazobactam IVPB 3.375 grams IVPB once over 60 mins; (mix in NS 100 tl4 mL) Route: IVPB; Infused Over: 60 mins; Site: left antecubital; 19:59 Follow up: IV Status: Completed infusion; IV Intake: 100ml tl4 19:30 Drug: NS 0.9% IV 1000 ml IV at 125 calculated rate Per protocol; 1000 mL bolus Route: tl4 IV; Rate: 125 calculated rate; Site: left antecubital; 20:04 Drug: diphenhydrAMINE IVP 25 mg IVP once Route: IVP; Site: left antecubital; tl4 20:38 Follow up: Response: Marked relief of symptoms tl4 Disposition: 21:21 Co-signature as Attending Physician, Anselmo Gordon MD I reviewed the patient's care rt provided by the Advanced Practice Provider and agree with the diagnosis and treatment plan. Disposition Summary: 09/13/23 18:49 Hospitalization Ordered Notes: Hospitalization Status: Inpatient Admission sb4 Provider: Tra Luu sb4 Location: Telemetry/[facility] (Inpatient) sb4 Condition: Stable sb4 Problem: new sb4 Symptoms: are unchanged sb4 Bed/Room Type: Standard sb4 Room Assignment: 201(09/13/23 20:07) Diagnosis - Acute cholecystitis sb4 Forms: - Medication Reconciliation Form sb4 - SBAR form sb4 - Leadership Thank You Letter sb4 Signatures: Dispatcher [employer] Omaira Gross RN RN Lali Newman RN RN hb Brown, Sophia, PA-C PA-C sb4 Anselmo Gordon MD MD rt Chas Obrien tl4 Corrections: (The following items were deleted from the chart) 20:07 18:49 sb4 cg
--- NOTE | 2023-09-13 18:49 | ER ---
Nurse's Notes [facility] Name: Marissa Hatfield Age: 22 yrs Sex: Female : 2000 Arrival Date: 09/13/2023 Time: 13:48 Bed 12 Private MD: Diagnosis: Acute cholecystitis Presentation: 09/13 14:26 Chief complaint: Upper abdominal pain x 3 days, N/V x 2 days. Coronavirus screen: At this time, the client does not indicate any symptoms associated with coronavirus-19. Ebola Screen: No symptoms or risks identified at this time. Initial Sepsis Screen: Does the patient meet any 2 criteria? No. Patient's initial sepsis screen is negative. Does the patient have a suspected source of infection? No. Patient's initial sepsis screen is negative. Risk Assessment: Do you want to hurt yourself or someone else? Patient reports no desire to harm self or others. Onset of symptoms was September 11, 2023. 14:26 Method Of Arrival: Ambulatory 14:26 Acuity: EVY 3 hb Triage Assessment: 17:04 General: Appears in no apparent distress. comfortable, Behavior is calm, cooperative. tl4 Historical: - Allergies: 14:27 No Known Allergies; hb - Home Meds: 14:27 None [Active]; hb - PMHx: 14:27 None; hb - PSHx: 14:27 None; hb - Immunization history:: Adult Immunizations up to date. - Social history:: Smoking status: Patient denies any tobacco usage or history of. Screenin:25 [facility] ED Fall Risk Assessment (Adult) History of falling in the last 3 months, tl4 including since admission No falls in past 3 months (0 pts) Confusion or Disorientation No (0 pts) Intoxicated or Sedated No (0 pts) Impaired Gait No (0 pts) Mobility Assist Device Used No (0 pt) Altered Elimination No (0 pt) Score/Fall Risk Level 0 - 2 = Low Risk Oriented to surroundings, Maintained a safe environment, Provided non-skid footwear, Hourly rounding (assess needs \T\ fall precautionary measures) done. Abuse screen: Denies threats or abuse. Denies injuries from another. Nutritional screening: No deficits noted. Tuberculosis screening: No symptoms or risk factors identified. Assessment: 15:24 Reassessment: No changes from previously documented assessment. Patient and/or family tl4 updated on plan of care and expected duration. Pain level reassessed. Patient is alert, oriented x 3, equal unlabored respirations, skin warm/dry/pink. Pain: Complains of pain in abdomen. GI: Bowel sounds present X 4 quads. Abd is soft Abdomen is tender to palpation in right upper quadrant and left upper quadrant. 20:00 Reassessment: Patient appears in no apparent distress at this time. Patient and/or tl4 family updated on plan of care and expected duration. Pain level reassessed. Patient is alert, oriented x 3, equal unlabored respirations, skin warm/dry/pink. 20:00 Derm: Rash noted that is macular, itchy, on right cheek and left cheek Reports itching. tl4 20:51 Reassessment: Attempt to call report, went to , left message to call back. tl4 Vital Signs: 14:27 BP 132 / 86; Pulse 82; Resp 16; Temp 98.6(TE); Pulse Ox 100% on R/A; Weight 61.69 kg; hb Height 5 ft. 0 in. ; Pain 5/10; 15:30 BP 121 / 80; Pulse 74; Resp 16; Pulse Ox 99% on R/A; tl4 16:20 BP 118 / 92; Pulse 81; Resp 18; Pulse Ox 99% on R/A; tl4 17:08 BP 106 / 68; Pulse 74; Resp 16; Pulse Ox 100% on R/A; Pain 0/10; tl4 20:24 BP 105 / 71; Pulse 83; Resp 16; Pulse Ox 97% on R/A; Pain 2/10; tl4 14:27 Body Mass Index 26.56 (61.69 kg, 152.4 cm) hb 14:27 Pain Scale: Adult hb 17:08 Pain Scale: Adult tl4 20:24 Pain Scale: Adult tl4 ED Course: 13:50 Patient arrived in ED. rg4 13:51 Perla Caputo PA-C is PHCP. sb4 13:51 Anselmo Gordon MD is Attending Physician. sb4 14:27 Triage completed. hb 14:27 Arm band placed on. hb 14:57 CBC with Diff Sent. bc6 14:57 CMP Sent. bc6 14:57 Lipase Sent. bc6 14:57 Test, Urine Sent. bc6 14:57 UAM Sent. bc6 14:57 Inserted saline lock: 20 gauge in right antecubital area, using aseptic technique. bc6 Blood collected. 15:21 Chas Obrien is Primary Nurse. tl4 15:25 Patient has correct armband on for positive identification. Bed in low position. Call tl4 light in reach. Side rails up X 1. Provided Education on: . 15:48 CT Abd/Pelvis - IV Contrast Only In Process Unspecified. EDMS 17:05 No provider procedures requiring assistance completed. tl4 17:27 US Abdomen Limited In Process Unspecified. EDMS 18:24 Transvaginal Study (probe) In Process Unspecified. EDMS 18:48 Tra Luu is Hospitalizing Provider. sb4 19:16 Blood Culture Adult (2) Sent. tl4 19:17 Lactate w/ 2H reflex if indic. Sent. tl4 19:17 Inserted saline lock: 20 gauge in left antecubital area, using aseptic technique. Blood tl4 collected. 20:02 Notified ED physician of other Rash to cheeks, orders received. tl4 20:25 IV discontinued, intact, bleeding controlled, No redness/swelling at site. Pressure tl4 dressing applied, right AC. Administered Medications: 15:32 Drug: NS 0.9% IV 1000 ml IV at 1 bolus Per protocol; 1000 mL bolus Route: IV; Rate: 1 tl4 bolus; Site: right antecubital; Delivery: Primary tubing; 17:30 Follow up: Response: No adverse reaction; IV Status: Completed infusion tl4 15:32 Drug: Ondansetron IVP 4 mg IVP once; over 2 minutes Route: IVP; Infused Over: 2 mins; tl4 Site: right antecubital; 17:47 Follow up: Response: Nausea is decreased tl4 19:29 Drug: Piperacillin-Tazobactam IVPB 3.375 grams IVPB once over 60 mins; (mix in NS 100 tl4 mL) Route: IVPB; Infused Over: 60 mins; Site: left antecubital; 19:59 Follow up: IV Status: Completed infusion; IV Intake: 100ml tl4 19:30 Drug: NS 0.9% IV 1000 ml IV at 125 calculated rate Per protocol; 1000 mL bolus Route: tl4 IV; Rate: 125 calculated rate; Site: left antecubital; 20:04 Drug: diphenhydrAMINE IVP 25 mg IVP once Route: IVP; Site: left antecubital; tl4 20:38 Follow up: Response: Marked relief of symptoms tl4 Medication: 17:04 VIS not applicable for this client. tl4 Intake: 19:59 IV: 100ml; Total: 100ml. tl4 Outcome: 18:49 Decision to Hospitalize by Provider. sb4 21:19 Admitted to Med/surg accompanied by tech, via wheelchair, room 201, Report called to [email or web address] CARMEN Randall 21:19 Condition: stable 21:19 Instructed on the need for admit, 21:32 Patient left the ED. tl4 Signatures: Dispatcher [employer] EDMS Lali Newman RN RN hb Garcia, Rubi rg4 Perla Caputo, PA-C PA-C sb4 Kristina Mathur6 Chas Obrien tl4 Corrections: (The following items were deleted from the chart) 14:29 14:26 Chief complaint: Upper abdominal pain x 3 days, N/V x 2 days. Not tolerating hb fluids. hb
[2023-09-13] MEDS ORDERED: PIPERACIL/TAZO 3.375 GM VIAL IV ONE (19:04)
[2023-09-13] MEDS ORDERED: NA CHLORIDE 0.9% 100 ML ONE (19:05)
[2023-09-13] MEDS ORDERED: ONDANSETRON 4 MG/2 ML VIAL IV PRN (19:34)
[2023-09-13] MEDS ORDERED: MORPHINE 2 MG/ML SYR IV PRN (19:34)
--- NOTE | 2023-09-13 19:44 | P.HP ---
Certification for Inpatient Patient admitted to: Observation With expected LOS: <2 Midnights Practitioner: I am a practitioner with admitting privileges, knowledge of patient current condition, hospital course, and medical plan of care. Services: Services provided to patient in accordance with Admission requirements found in Title 42 Section 412.3 of the Code of Federal Regulations Patient History Date of Service: 09/13/23 Reason for admission: Right upper quadrant pain History of Present Illness: 22-year-old man with a history of alcohol abuse undergoing rehab for alcoholism and ecstasy presented to the emergency department with a complaint of right upper quadrant pain of about 3 days duration. Symptoms associated with nausea and vomiting, no reported diarrhea, no fever. CT abdomen and pelvis and abdominal ultrasound demonstrated cholelithiasis and gallbladder wall thickening indicating cholecystitis. General surgery Dr. Dsouza was contacted who is planning surgery and recommended admission for further management. - Past Medical/Surgical History -: Alcohol abuse - Family History Family History: Reviewed- Non-Contributory - Social History Smoking Status: Current every day smoker Alcohol use: Yes Place of Residence: Home Review of Systems Other: Except as documented, all other systems reviewed and negative. Physical Examination - Physical Exam General: Alert, In no apparent distress, Oriented x3 HEENT: Mucous membr. moist/pink, Sclerae nonicteric Neck: Supple, 2+ carotid pulse no bruit Respiratory: Clear to auscultation bilaterally, Normal air movement Cardiovascular: No edema, Regular rate/rhythm, Normal S1 S2 Capillary refill: <2 Seconds Gastrointestinal: Normal bowel sounds, Soft and benign, Non-distended, Tenderness (RUQ) Musculoskeletal: No swelling, No tenderness Integumentary: No rashes, No cyanosis Neurological: Normal speech, Normal strength at 5/5 x4 extr Lymphatics: No axilla or inguinal lymphadenopathy - Studies Laboratory Data (last 24 hrs) 09/13/23 09/13/23 14:55 14:55 WBC 11.70 H Hgb 15.1 H Hct 43.4 Plt Count 400 Sodium 133 L Potassium 3.5 BUN 6 L Creatinine 0.72 Glucose 106 Total Bilirubin 0.5 AST 12 L ALT 27 Alkaline Phosphatase 84 Lipase 51 Assessment and Plan - Problems (Diagnosis) (1) Acute cholecystitis Current Visit: Yes Status: Acute (2) Hemorrhagic cyst of ovary Current Visit: Yes Status: Acute (3) Alcohol abuse Current Visit: Yes Status: Acute - Plan Place patient on observation on the medical floor. General surgery consulted. Dr. Dsouza is planning Lap cholecystectomy tomorrow. Pain management as needed Antiemetics as needed Empiric IV Rocephin. IV hydration Patient started alcohol detox 10 days ago and do not anticipate patient will going to alcohol withdrawal. Follow-up as outpatient for ovarian hemorrhagic cyst. - Advance Directives Does patient have a Living Will: No Does patient have a Durable POA for Healthcare: No
[2023-09-13] MEDS ORDERED: DIPHENHYDRAMINE 50 MG/ML VIAL ONE (20:14)
[2023-09-13 21:46] VITALS: BMI 26.5
[2023-09-13] MEDS: D5 0.9 NS 1,000 ML IV SCH (21:50)
[2023-09-13] MEDS ORDERED: DIPHENHYDRAMINE 25 MG TAB/CAP PO ONE (22:34)
[2023-09-14 02:37] LABS: Absolute Lymphocytes (CBC) 2.9 K/uL (0.7-4.9); Hematocrit 37.1 % (36.0-45.0); Lymphocytes % 26.6 % (15.3-44.8); MCV 93.5 fL (80-100); MPV 8.4 fL (7.6-11.3); Platelets 375 thou/uL (152-406); RBC Red Blood Cell Count 3.97 M/uL (3.86-4.86)
[2023-09-14 02:58] LABS: Phosphorus 3.5 mg/dL (2.5-4.9); Potassium 3.6 mEq/L (3.5-5.1)
[2023-09-14] MEDS: D5 0.9 NS 1,000 ML IV SCH ×2 (06:00→17:47)
[2023-09-14] MEDS ORDERED: PIPER TAZO 3.375 GM in NA CHLORIDE 0.9% 100 ML IV ONE (07:45)
[2023-09-14] MEDS ORDERED: INFLUENZA VACCINE (for 6+ mo) 0.5 ML DOSE IMVAC ONE (08:00)
[2023-09-14] MEDS: Ringers Lactate 1,000 ML IV ONE (08:02)
--- NOTE | 2023-09-14 08:05 | P.CNS ---
Date of Consult: 09/14/23 Reason for consult: Abdominal pain History of present illness: Patient is a 22-year-old female presented to the emergency room with 3-day history of increasing biliary colic. Patient had postprandial right upper quadrant pain associated with nausea, vomiting, bloating, belching and heartburn. Her symptoms were worsening and she came to the emergency room. Patient is currently undergoing rehab for alcohol abuse. Patient denies any sore throat runny nose cough headaches dizziness chest pain fever or chills. No diarrhea, constipation, blood per rectum, dysuria or hematuria. Review of systems: Otherwise unremarkable Past medical history: Alcohol abuse Past surgical history: Allergies: Questionable allergy to Zosyn Social history: Patient does smoke and drink alcohol and currently in rehab Family history: Noncontributory Vital signs: Stable, afebrile Physical exam: Awake, alert and oriented x 3 Head and neck exam: No evidence of icterus, no neck masses, no JVD, throat clear and neck supple Chest: Clear Heart: S1-S2 Abdomen: Soft, nondistended, positive bowel sounds with tenderness in the right upper quadrant no evidence of peritonitis Extremity: Neurovascular intact Neuro: Nonfocal Diagnostic data: White count was slightly elevated, LFTs were within normal limits and CT of the abdomen pelvis and ultrasound showed mild gallbladder wall thickening with gallstones. Patient also had a pelvic ultrasound which showed a benign cyst on the right ovary and mild hydrosalpinx on the left side. Assessment: Acute cholecystitis and cholelithiasis and the patient currently in rehab. Patient also has incidental finding of ovarian cyst and hydrosalpinx Plan/recommendation: We will proceed with laparoscopic cholecystectomy, possible open. Patient understands risk, benefits and alternatives and agrees to procedure. Her pain management will need to be modified because of her current rehab situation. She needs to follow-up with a [employer] doctor for her pelvic findings as an outpatient. This this was discussed with the patient. CC:
[2023-09-14] MEDS ORDERED: CEFOXITIN SODIUM 1 GM/VIAL ONE (08:06)
[2023-09-14] MEDS ORDERED: SUCCINYLCHOLINE 20 MG/ML (10 ML) IV ONE (08:07)
[2023-09-14] MEDS ORDERED: ROCURONIUM 50 MG/5 ML VIAL IV ONE (08:13)
[2023-09-14] MEDS ORDERED: FENTANYL CITR 100 MCG/2 ML ONE ×3 (08:13→10:04)
[2023-09-14] MEDS ORDERED: MIDAZOLAM HCL 2 MG/2 ML INJ ONE (08:13)
[2023-09-14] MEDS ORDERED: propofoL 200 MG/20 ML VIAL IV ONE (08:13)
[2023-09-14] MEDS ORDERED: NEOSTIGMINE 1 MG/ML -10 ML VIAL ONE (09:22)
--- NOTE | 2023-09-14 09:30 | P.OP ---
Date of Service: 09/14/23 Preop diagnosis: Acute cholecystitis and cholelithiasis Postop diagnosis: Same Procedure performed: Laparoscopic cholecystectomy Surgeon: Adi Dsouza MD Cancer Registrar: Nasra BUSH Estimated blood loss: Minimal Specimen: Gallbladder Findings: As above Anesthesia: General Complications: None Drains: None Fluids and blood products: Nonapplicable Disposition: Recovery room Operative note: Patient brought to the OR and placed in supine position. General anesthesia begun. Patient prepped and draped in usual sterile fashion. Marcaine 0.5% infiltrated locally. 15 blade used to make a 1 cm infraumbilical midline incision. Subcu tissue divided and bleeding controlled cautery. Fascia identified and divided. #1 Vicryl stay suture placed. Peritoneal cavity entered with sharp and blunt dissection. 12 mm trocar placed into the peritoneal cavity under direct vision. Pneumoperitoneum established. Then 3 5 mm trocars placed under direct vision. 1 trocar placed in the epigastric region just to the right of midline. 2 trocars placed in the right subcostal region. Laparoscopy revealed a thick-walled distended gallbladder which was aspirated of clear bile consistent with acute cholecystitis. Fundus retracted superiorly and infundibulum identified and retracted inferolaterally. Cystic duct and cystic artery clearly identified with blunt dissection. Clips placed and both structures divided. Cautery used to remove the gallbladder from the liver bed. Bleeding on the liver controlled with cautery. Gallbladder retrieved through the umbilicus via Endo Catch bag. Right upper quadrant irrigated. Effluent clear and no evidence of bleeding or bile leakage appreciated. All trocars removed under direct direct vision. Stay sutures tied to each other to reapproximate the fascial defect. Subcutaneous wounds irrigated and bleeding controlled cautery. 3-0 chromic used to reapproximate subcutaneous tissue and close skin. Sterile dressing applied. Patient awakened and taken to recovery room in good general condition. CC:
[2023-09-14] MEDS ORDERED: BUTORPHANOL 1 MG/ML INJ IV PRN (09:32)
[2023-09-14] MEDS: HYDROMORPHONE HCL 1 MG/ML INJ ONE ×2 (09:35→09:45)
[2023-09-14] MEDS ORDERED: Ringers Lactate 1,000 ML IV ONE (09:44)
[2023-09-14] MEDS ORDERED: KETOROLAC 30 MG/ML INJ ONE (09:46)
[2023-09-14] MEDS: TRAMADOL 37.5mg/APAP 325mg PER TAB PO PRN ×3 (10:44→20:15)
--- NOTE | 2023-09-14 12:38 | P.PN ---
Subjective Date of Service: 09/14/23 Chief Complaint: Right upper quadrant pain Subjective: No new changes, Improving (had cholecystectomy.) Physical Examination - Vital Signs Temperature: 96.8 F Blood Pressure: 127/61 Pulse: 78 Respirations: 19 Pulse Ox (%): 100 - Physical Exam General: Alert, Oriented x3 HEENT: Atraumatic Neck: Supple Respiratory: Normal air movement Cardiovascular: Regular rate/rhythm, Normal S1 S2 Gastrointestinal: Soft and benign Musculoskeletal: No swelling Neurological: Normal speech - Studies Laboratory Data (last 24 hrs) 09/13/23 09/13/23 14:55 14:55 WBC 11.70 H Hgb 15.1 H Hct 43.4 Plt Count 400 Sodium 133 L Potassium 3.5 BUN 6 L Creatinine 0.72 Glucose 106 Total Bilirubin 0.5 AST 12 L ALT 27 Alkaline Phosphatase 84 Lipase 51 Assessment And Plan - Plan Assessment and Plan - Problems (Diagnosis) (1) Acute cholecystitis Current Visit: Yes Status: Acute (2) Hemorrhagic cyst of ovary Current Visit: Yes Status: Acute (3) Alcohol abuse Current Visit: Yes Status: Acute - Plan Had cholecystectomy done earlier today. Pain control is adequate. Will observe as per surgeon recommendation. Should be discharged once cleared by surgical service. - Advance Directives Does patient have a Living Will: No Does patient have a Durable POA for Healthcare: No Time taken was 25 minutes
[2023-09-14] MEDS ORDERED: POTASSIUM CL SA 10 MEQ TAB PO ONE (13:00)
[2023-09-14] MEDS: KETOROLAC 30 MG/ML INJ IV PRN ×3 (13:05→23:26)
[2023-09-14] MEDS: CEFOXITIN 1 GM in NA CHLORIDE 0.9% 50 ML IVPB SCH ×3 (15:07→23:27)
[2023-09-14] MEDS ORDERED: DIPHENHYDRAMINE 25 MG TAB/CAP PO ONE (23:43)
[2023-09-15] MEDS: D5 0.9 NS 1,000 ML IV SCH (02:00)
[2023-09-15] MEDS: TRAMADOL 37.5mg/APAP 325mg PER TAB PO PRN ×2 (02:45→11:58)
[2023-09-15] MEDS: CEFOXITIN 1 GM in NA CHLORIDE 0.9% 50 ML IVPB SCH ×3 (05:21→17:08)
[2023-09-15] MEDS: KETOROLAC 30 MG/ML INJ IV PRN ×3 (07:36→20:11)
--- NOTE | 2023-09-15 10:27 | PN ---
Date of Progress Note: 09/15/2023 Subjective: The patient is awake, alert, tolerating diet. However, she requires parenteral pain man agement as Toradol. Narcotics are to be avoided in this patient because of her recent history of sophy ng in rehab for substance abuse. Objective: Vital Signs: Stable. Afebrile. Abdomen: Benign. Assessment: Status post laparoscopic cholecystectomy for acute cholecystitis and cholelithiasis. Recommendations: We will keep the patient another day in the hospital for parenteral pain management and tomorrow she can be discharged home on nonsteroidal anti-inflammatory agents. I will discuss th e case with Dr. Turcios. GWEN/WOLF Voice ID: [id number] Report ID: [id number]
[2023-09-15 10:46] LABS: Absolute Lymphocytes (CBC) 1.9 K/uL (0.7-4.9); Hematocrit 37.8 % (36.0-45.0); Lymphocytes % 19.7 % (15.3-44.8); MCV 94.4 fL (80-100); MPV 7.7 fL (7.6-11.3); Platelets 343 thou/uL (152-406); RBC Red Blood Cell Count 4.01 M/uL (3.86-4.86)
[2023-09-15 11:00] LABS: Potassium 3.6 mEq/L (3.5-5.1)
--- NOTE | 2023-09-15 15:18 | P.PN ---
Subjective Date of Service: 09/15/23 Chief Complaint: Right upper quadrant pain Subjective: No new changes, Improving Physical Examination - Vital Signs Temperature: 98.1 F Blood Pressure: 115/51 Pulse: 95 Respirations: 16 Pulse Ox (%): 98 - Physical Exam General: Alert HEENT: Atraumatic Neck: Supple Respiratory: Normal air movement Cardiovascular: Regular rate/rhythm, Normal S1 S2 Gastrointestinal: Soft and benign Musculoskeletal: No swelling Neurological: Normal speech Assessment And Plan - Plan Assessment and Plan - Problems (Diagnosis) (1) Acute cholecystitis Current Visit: Yes Status: Acute (2) Hemorrhagic cyst of ovary Current Visit: Yes Status: Acute (3) Alcohol abuse Current Visit: Yes Status: Acute - Plan Had cholecystectomy. No new issues with procedure. Pain control is still a little challenging. Will observe as per surgeon recommendation. Should be discharged once cleared by surgical service. - Advance Directives Does patient have a Living Will: No Does patient have a Durable POA for Healthcare: No Discharged: In next 24h. Time taken was 25 minutes
[2023-09-15] MEDS ORDERED: DIPHENHYDRAMINE 25 MG TAB/CAP PO PRN (20:03)
[2023-09-16] MEDS: CEFOXITIN 1 GM in NA CHLORIDE 0.9% 50 ML IVPB SCH ×2 (00:20→06:10)
[2023-09-16] MEDS: TRAMADOL 37.5mg/APAP 325mg PER TAB PO PRN (00:20)
[2023-09-16] MEDS: KETOROLAC 30 MG/ML INJ IV PRN (03:35)
[2023-09-16 08:01] VITALS: BP 96/53; TEMP 97.6
[2023-09-16 09:09] VITALS: O2SAT 99
--- NOTE | 2023-09-16 10:22 | PN ---
Date of Progress Note: 09/16/2023 Subjective: Patient is awake, alert. Pain is much better. Objective: Vital Signs: Stable, afebrile. Abdomen: Benign Laboratory Data: Reviewed. Assessment: Status post laparoscopic cholecystectomy for acute cholecystitis and cholelithiasis. Recommendations: Patient is cleared for discharge from surgery standpoint. Discharge instructions w ere given. Patient is to follow up with me in 1 week. /MODL Voice ID: [id number] Report ID: [id number]
--- NOTE | 2023-09-16 12:02 | P.DS ---
Admission Date: 09/14/23 Discharge Date: 09/16/23 Disposition: ROUTINE DISCHARGE Discharge Condition: GOOD Reason for Admission: Right upper quadrant pain Vital Signs/Physical Exam: Temp Pulse Resp BP Pulse Ox 97.6 F 68 14 96/53 L 98 09/16/23 08:00 09/16/23 08:00 09/16/23 08:00 09/16/23 08:00 09/16/23 08:00 Laboratory Data at Discharge: WBC 9.50 thou/uL (4.3-10.9) 09/15/23 10:24 Hgb 13.0 g/dL (12.0-15.0) 09/15/23 10:24 Hct 37.8 % (36.0-45.0) 09/15/23 10:24 Plt Count 343 thou/uL (152-406) 09/15/23 10:24 Sodium 138 mEq/L (136-145) 09/15/23 10:24 Potassium 3.6 mEq/L (3.5-5.1) 09/15/23 10:24 BUN 6 mg/dL (7-18) L 09/15/23 10:24 Creatinine 0.60 mg/dL (0.55-1.02) 09/15/23 10:24 Glucose 55 mg/dL (74-106) L 09/15/23 10:24 Phosphorus 3.5 mg/dL (2.5-4.9) 09/14/23 01:38 Magnesium 2.0 mg/dL (1.6-2.4) 09/14/23 01:38 Total Bilirubin 0.5 mg/dL (0.2-1.0) 09/13/23 14:55 AST 12 U/L (15-37) L 09/13/23 14:55 ALT 27 U/L (13-56) 09/13/23 14:55 Alkaline Phosphatase 84 U/L (45-117) 09/13/23 14:55 Lipase 51 U/L (13-75) 09/13/23 14:55 Home Medications: NK [No Home Meds] 09/14/23 Physician Discharge Instructions: May shower in a.m. Keep Steri-Strips on at all times Incentive spirometry as instructed No heavy lifting or strenuous exercise Follow-up my office 1 week, call for appointment Resume home meds and diet Tylenol or Advil for pain Diet: Regular Activity: No lifting more than 10 lbs Followup: Adi Dsouza MD [ACTIVE - CAN ADMIT] - 1 Week
== END 2023-09-16 11:01 | disposition home or self-care (01) | DRG 419 ==
LOC: ER 13:48 → ERHOLD 19:31 → 2ND 20:27 → OBSVTOIN 09-14 14:36
PROVIDERS: ADMIT Internal Medicine; ATTEND Internal Medicine Nephrology
PROC: 0FT44ZZ Resection of Gallbladder, Percutaneous Endoscopic Approach (ICD-10-PCS; principal; 2023-09-14 08:00)
DX: K80.00 Calculus of gallbladder with acute cholecystitis without obstruction (principal); F10.20 Alcohol dependence, uncomplicated; N83.201 Unspecified ovarian cyst, right side; N70.11 Chronic salpingitis; F17.200 Nicotine dependence, unspecified, uncomplicated
CPT/HCPCS: 36415; 74177; 76705; 76830; 80048; 80053; 81001; 81025; 83605; 83690; 83735; 84100; 85025; 87040; 88304; 94010; 99285; G0378; J0694; J1170; J1200; J2250; J2270; J2405; J2543; J2704; J2710; J3010; J7030; J7042; J7120; Q9967